=== PATIENT | male | born 1950 | race Caucasian/White ===

== ENCOUNTER 2017-10-12 09:43 | Day surgery (SDC) | payer OTHER ==
--- NOTE | 2017-10-10 09:52 | EKG ---
Test Date: 2017-10-10 Test Time: 09:26:13 Circuit Tester: DARLIN MEASUREMENT RESULTS: Intervals: Rate: 79 OH: 216 QRSD: 96 QT: 376 QTc: 431 [place]: P: 68 OH: 216 QRS: -14 T: 255 INTERPRETIVE STATEMENTS: Sinus rhythm with 1st degree AV block T wave abnormality, consider inferolateral ischemia Abnormal ECG No previous ECG available for comparison Electronically Signed On 10-10-17 09:51:45 CDT by Torin Doty
[2017-10-12] MEDS ORDERED: Ringers Lactate 1,000 ML IV ONE (09:52)
[2017-10-12] MEDS ORDERED: FENTANYL CITR 250 MCG/5 ML ONE (12:37)
[2017-10-12] MEDS ORDERED: LIDOCAINE 2% MPF 5 ML VIAL ONE (12:37)
[2017-10-12] MEDS ORDERED: ROCURONIUM 50 MG/5 ML VIAL IV ONE (12:37)
[2017-10-12] MEDS ORDERED: PROPOFOL 200 MG/20 ML VIAL IV ONE (12:37)
[2017-10-12] MEDS ORDERED: MIDAZOLAM HCL 2 MG/2 ML INJ ONE (12:37)
[2017-10-12] MEDS ORDERED: GLYCOPYRROLATE 0.2 MG/ML SYR ONE (14:12)
[2017-10-12] MEDS ORDERED: NEOSTIGMINE 1 MG/ML -5 ML SYRINGE ONE (14:13)
[2017-10-12] MEDS ORDERED: DEXAMETHASONE 10 MG/ML VIAL ONE (14:31)
[2017-10-12] MEDS: MEPERIDINE HCL 50 MG/ML AMP ONE ×2 (15:07→15:13)
[2017-10-12] MEDS ORDERED: TRAMADOL HCL 50 MG TAB PO ONE (16:00)
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
== END 2017-10-12 16:25 | disposition home or self-care (01) ==
LOC: OR 09:43
PROVIDERS: ATTEND Otolaryngology
PROC: 0CBS8ZX Excision of Larynx, Via Natural or Artificial Opening Endoscopic, Diagnostic (ICD-10-PCS; principal; 2017-10-12 11:30)
DX: C32.9 Malignant neoplasm of larynx, unspecified (principal); K21.9 Gastro-esophageal reflux disease without esophagitis; I10 Essential (primary) hypertension; G47.33 Obstructive sleep apnea (adult) (pediatric); I25.10 Atherosclerotic heart disease of native coronary artery without angina pectoris; Z95.0 Presence of cardiac pacemaker; Z80.9 Family history of malignant neoplasm, unspecified; Z82.49 Family history of ischemic heart disease and other diseases of the circulatory system; Z82.3 Family history of stroke
CPT/HCPCS: 31536; 88305; 93005; J1100; J2175; J2250; J2710

== ENCOUNTER 2018-11-04 16:27 | Inpatient (IN) | payer OTHER ==
--- OUTSIDE RECORDS SUMMARY | 2018-11-04 16:56 | XMS REPORT | Continuity of Care Document ---
:1950 Author Organization Interface Problems Problem Status Onset Classification Date Comments Source Date Reported Acute respiratory 01/27/20 08/06/2018 [facility] failure with 18 hypoxia SOB Active 01/09/20 [facility] 18 Shane Shortness of 08/06/2018 [facility] breath Pneumonia due to 08/06/2018 [facility] Methicillin susceptible Staphylococcus aureus Hypo-osmolality 08/06/2018 [facility] and hyponatremia Hyperosmolality 08/06/2018 [facility] and hypernatremia Edema of larynx 08/06/2018 [facility] Obstructive sleep 08/06/2018 [facility] apnea (pediatric) Anxiety disorder, 08/06/2018 [facility] unspecified Essential 08/06/2018 [facility] hypertension Hyperlipidemia, 08/06/2018 [facility] unspecified Dehydration 08/06/2018 [facility] Bradycardia, 08/06/2018 [facility] unspecified Hypomagnesemia 08/06/2018 [facility] Dysphagia, 08/06/2018 [facility] oropharyngeal phase Obesity, 08/06/2018 [facility] unspecified Other specified 08/06/2018 [facility] disorders of the skin and subcutaneous tissue related to radiation Anemia, 08/06/2018 [facility] unspecified Elevated white 08/06/2018 [facility] blood cell count, unspecified 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 Diarrhea, 08/06/2018 [facility] unspecified Gastritis, 08/06/2018 [facility] unspecified, without bleeding Gastric ulcer, 08/06/2018 [facility] unspecified as acute or chronic, without hemorrhage or perforation Personal history 08/06/2018 [facility] of nicotine dependence Personal history 08/06/2018 [facility] of irradiation Personal history 08/06/2018 [facility] of antineoplastic chemotherapy Body mass index 08/06/2018 [facility] 39.0-39.9, adult Presence of 08/06/2018 [facility] cardiac pacemaker SHORTNESS OF Active [facility] BREATH [place] Medications Medication Details Route Status Patient Ordering Order Source Instructions Provider Date lisinopril 20 mg 20 mg=1 tab, Active oral tablet PO, Q24H, # 30 2018 [facility] tab, 0 Refill(s) Hydralazine 25 mg=1 tab, Active Hydrochloride 25 MG PO, BID, # 60 2018 [facility] Oral Tablet tab, 0 Refill(s) carvedilol 6.25 mg 6.25 mg=1 tab, Active oral tablet PO, Q12H, # 60 2018 [facility] tab, 0 Refill(s) amLODIPine 10 mg 10 mg=1 tab, Active oral tablet PO, Daily, # 2018 [facility] 30 tab, 0 Refill(s) Magnesium Oxide 800 mg, 2 tab, Inactive Route: PO, 2017 [facility] Drug form: TAB, ONCE, Dosing Weight 118.2, kg, Start date: 01/17/18 17:59:00 CDT, Stop date: 01/17/18 17:59:00 CDTNotes: (Same as: Mag-Ox 400) Magnesium oxide [id number] elemental magnesium Dose=____mg magnesium oxide (___mg elemental magnesium) Magnesium Sulfate 2 gm, 50 mL, Inactive Route: IVPB, 2017 [facility] Drug form: INJ, Q2H, Dosing Weight 118.2, kg, Total dose=4 gm, Start date: 01/17/18 16:00:00 CDT, Duration: 2 doses or times, Stop date: 01/17/18 18:00:00 CDTNotes: WASTE: F/P - Sink; E - Municipal Trash Bin Maalox Advanced 20 mL, Route: Inactive Regular Strength PO, Drug Form: 2017 [facility] SUSP SUSP, Dosing Weight 118.2, kg, ONCE, NOW, Start date: 01/17/18 1:34:00 CDT, Stop date: 01/17/18 1:34:00 CDTNotes: (aluminum hydroxide-magn esium hyd-simethicon e [phone]/5 ml 30 ml ud FADY) Prednisone 40 mg, 2 tab, No Longer Route: PEG, Active 2017 [facility] Drug form: TAB, Daily, Dosing Weight 118.2, kg, Start date: 01/16/18 9:00:00 CDT, Duration: 30 day, Stop date: 02/14/18 9:00:00 CDTNotes: Take with food. benazepril 20 mg, Route: No Longer PO, Drug form: Active 2018 [facility] TAB, Daily, Dosing Weight 118.2, kg, Start date: 01/15/18 9:00:00 CDT, Duration: 30 day, Stop date: 02/13/18 9:00:00 CDT Amlodipine 10 mg, 2 tab, No Longer Route: PO, Active 2018 [facility] Drug form: TAB, Daily, Dosing Weight 118.2, kg, Start date: 01/15/18 9:00:00 CDT, Duration: 30 day, Stop date: 02/13/18 9:00:00 CDTNotes: (Same as: Norvasc) Coreg 6.25 mg, 2 No Longer tab, Route: Active 2017 [facility] PO, Drug form: TAB, Q12H, Dosing Weight 118.2, kg, Start date: 01/14/18 21:00:00 CDT, Duration: 30 day, Stop date: 02/13/18 9:00:00 CDTNotes: Give with food. (Same As: Coreg) Hydralazine 25 mg, 1 tab, No Longer Hydrochloride 25 MG Route: PO, Active 2017 [facility] Oral Tablet Drug form: TAB, BID, Dosing Weight 118.2, kg, Start date: 01/14/18 17:00:00 CDT, Duration: 30 day, Stop date: 02/13/18 9:00:00 CDTNotes: (Same as: Apresoline) May interfere w/enteral feedings Take With Food. lisinopril 20 mg, 1 tab, No Longer Route: PO, Active 2017 [facility] Drug form: TAB, Q24H, Start date: 01/14/18 16:00:00 CDT, Duration: 30 day, Stop date: 02/12/18 16:00:00 CDTNotes: (Same as: Prinivil, Zestril) Levofloxacin 750 mg, 3 tab, No Longer Route: PO, Active 2018 [facility] Drug form: TAB, [id number], Dosing Weight 118.2, kg, Start date: 01/14/18 9:00:00 CDT, Duration: 3 day, Stop date: 01/16/18 9:00:00 CDT, ABX Indication: PneumoniaNotes : Do not give w/antacids, dairy pdt & minerals Take 1 hr before or 2 hr after dairy pdt (Same as:Levaquin) Magnesium Sulfate 1 gm, 100 mL, Inactive Route: IVPB, 2017 [facility] Drug form: INJ, ONCE, Dosing Weight 118.2, kg, Start date: 01/13/18 6:14:00 CDT, Stop date: 01/13/18 6:14:00 CDTNotes: WASTE: F/P - Sink; E - Municipal Trash Bin Famotidine 20 MG 20 mg, 1 tab, No Longer Oral Tablet Route: PO, Active 2017 [facility] Drug form: TAB, Q12H, Dosing Weight 118.2, kg, Start date: 01/11/18 21:00:00 CDT, Duration: 30 day, Stop date: 02/10/18 9:00:00 CDTNotes: (Same as: Pepcid) Melatonin 3 MG 3 mg, 1 tab, No Longer Extended Release Route: PO, Active 2017 [facility] Tablet Drug Form: TAB, Dosing Weight 118.2, kg, ONCE, NOW, Start date: 01/11/18 20:30:00 CDT, Stop date: 01/11/18 20:30:00 CDTNotes: (Same as: Melatonin) Aluminum Hydroxide 5 mL, Route: No Longer 40 MG/ML / S&SPIT, Drug Active 2017 [facility] Magnesium Hydroxide Form: SUSP, 40 MG/ML / Dosing Weight Simethicone 4 MG/ML 118.2, kg, Oral Suspension TID, Start [Mi-Acid] date: 01/11/18 17:00:00 CDT, Stop date: 02/10/18 13:00:00 CDTNotes: (aluminum hydroxide-magn esium hyd- simethicone [phone]/5 ml 30 ml ud FADY) Silver Sulfadiazine 1 appl, Route: No Longer 10 MG/ML Topical TOP, BID, Drug Active 2018 [facility] Cream form: CRM, Start date: 01/11/18 17:00:00 CDT, Duration: 30 day, Stop date: 02/10/18 9:00:00 CDTNotes: (Same as: Silvaangel) WASTE: F/P - Black; E - Municipal Trash Bin Protonix 40 mg, 1 pkt, No Longer Route: PEG, Active 2017 [facility] Drug form: GRAN/REC, BID, Dosing Weight 118.2, kg, Start date: 01/11/18 17:00:00 CDT, Duration: 30 day, Stop date: 02/10/18 9:00:00 CDTNotes: Same as: Protonix Mix in 5 mL apple juice or applesauce for oral & 10mL apple juice for NG tube Aquaphor 1 appl, Route: No Longer TOP, Q12H, Active 2017 [facility] Drug form: OINT, PRN Dry Skin, Start date: 01/11/18 15:07:00 CDT, Duration: 30 day, Stop date: 02/10/18 15:06:00 CDT chlorhexidine 15 mL, Route: No Longer gluconate 1.2 MG/ML Swab Mouth, Active 2017 [facility] Mouthwash Q12H, Drug form: LIQ, Start date: 01/09/18 21:00:00 CDT, Duration: 30 day, Stop date: 02/08/18 9:00:00 CDTNotes: (Same As: Peridex) Famotidine 20 mg, Route: Inactive IVPB, Q12H, 2017 [facility] Dosing Weight 118.2, kg, Start date: 01/09/18 21:00:00 CDT, Duration: 30 day, Stop date: 02/08/18 9:00:00 CDT famotidine 20 mg, 2 mL, No Longer Route: IVP, Active 2017 [facility] Drug form: INJ, Q12H, Start date: 01/09/18 21:00:00 CDT, Duration: 30 day, Stop date: 02/08/18 9:00:00 CDTNotes: (Same as: Pepcid) Can be dilute in 5-10cc NS IVP: Slow IV push over at least 2 minutes. ocular lubricant 1 appl, Route: No Longer BOTH EYES, Active 2017 [facility] Q6H, Drug form: OINT, Start date: 01/09/18 18:00:00 CDT, Duration: 30 day, Stop date: 02/08/18 12:00:00 CDTNotes: (Same as: Lacri-Lube, Duratears Naturale, Artificial Tears, and Tears Again ) Hydralazine 10 mg, 0.5 mL, No Longer Route: IVP, Active 2017 [facility] Drug form: INJ, Q4H, Dosing Weight 118.2, kg, PRN Hypertension, Start date: 01/09/18 15:49:00 CDT, Duration: 30 day, Stop date: 02/08/18 15:48:00 CDTNotes: (Same as: Apresoline) Push over 5 minutes propofol (ANES) Route: IV, Inactive Drug form: 2017 [place] INJ, ONCE, Stop date: 01/09/18 15:45:00 CDT metoprolol (ANES) Route: IV, Inactive Drug form: 2017 [facility] INJ, ONCE, Stop date: 01/09/18 15:27:00 CDT hydrALAZINE (ANES) Route: IV, Inactive Drug form: 2017 [facility] INJ, ONCE, Stop date: 01/09/18 15:27:00 CDT fentaNYL (ANES) Route: IV, Inactive Drug form: 2017 [facility] INJ, ONCE, Stop date: 01/09/18 15:15:00 CDT midazolam (ANES) Route: IV, Inactive Drug form: 2018 [facility] SOLN, ONCE, Stop date: 01/09/18 15:09:00 CDT chlorhexidine 15 mL, Route: No Longer gluconate 1.2 MG/ML Swab Mouth, Active 2017 [facility] Mouthwash PRN, Drug form: LIQ, PRN Other -See Comment, Start date: 01/09/18 15:07:00 CDT, Duration: 30 day, Stop date: 02/08/18 15:06:00 CDTNotes: (Same As: Peridex) Lactated Ringers Route: IV, Inactive Injection IV (ANES) Total Volume: 2017 [facility] 1000 mL 1,000, Start date: 01/09/18 14:30:00 CDT, Stop date: 01/09/18 15:30:00 CDT Labetalol 10 mg, 2 mL, No Longer Route: IVP, Active 2017 [facility] Drug form: INJ, Q6H, Dosing Weight 118.2, kg, PRN Hypertension, Start date: 01/09/18 11:01:00 CDT, Duration: 30 day, Stop date: 02/08/18 11:00:00 CDT Hydralazine 10 mg, Route: Inactive IVP, Q6H, 2017 [facility] Dosing Weight 118.2, kg, PRN Hypertension, Start date: 01/09/18 10:51:00 CDT, Duration: 30 day, Stop date: 02/08/18 10:50:00 CDT Naproxen sodium 220 220 mg=1 tab, No Longer MG Oral Tablet PO, Q8H, PRN Active 2017 [facility] [Aleve] Headache, # 30 tab, 0 Refill(s) Hydralazine 25 mg=1 tab, No Longer Hydrochloride 25 MG PO, TID, # 90 Active 2017 [facility] Oral Tablet tab, 3 Refill(s) tramadol 50 mg=1 tab, No Longer hydrochloride 50 MG PO, BID, # 30 Active 2018 [facility] Oral Tablet tab, 0 Refill(s) carvedilol 6.25 mg 6.25 mg=1 tab, No Longer oral tablet PO, BID, # 180 Active 2017 [facility] tab, 3 Refill(s) Fenofibrate 54 MG 54 mg=1 tab, No Longer Oral Tablet PO, BID, # 30 Active 2017 [facility] tab, 0 Refill(s) diclofenac sodium 75 mg=1 tab, No Longer 75 mg oral enteric PO, BID, PRN Active 2018 [facility] coated, Pain, # 60 delayed-release tab, 0 tablet Refill(s) 60 ACTUAT 50 microgram=1 No Longer Fluticasone ea, Active 2017 [facility] propionate 0.05 INHALATION, MG/ACTUAT Dry BID, # 60 ea, Powder Inhaler 0 Refill(s) Aspirin 81 MG 81 mg=1 tab, No Longer Chewable Tablet PO, Daily, Active 2018 [facility] tab, 0 Refill(s) Tylenol PO, 0 No Longer Refill(s) Active 2018 [facility] Amlodipine 10 MG / 1 cap, PO, No Longer Benazepril Daily, # 30 Active 2018 [facility] hydrochloride 20 MG cap, 0 Oral Capsule Refill(s) Hydrochlorothiazide 1 tab, 0 No Longer 25 MG / valsartan Refill(s) Active 2018 [facility] 320 MG Oral Tablet atorvastatin 40 mg 80 mg=2 tab, No Longer oral tablet PO, Bedtime, # Active 2018 [facility] 30 tab, 0 Refill(s) methylPREDNISolone 40 mg, 1 mL, No Longer SODium SUCCinate Route: IVP, Active 2017 [facility] Drug form: INJ, Q12H, Dosing Weight 118.2, kg, Start date: 01/09/18 9:00:00 CDT, Duration: 30 day, Stop date: 02/07/18 21:00:00 CDTNotes: (Same as:Solu-MEDROL , A-Methapred) Mupirocin 20 MG/ML 1 appl, Route: No Longer Topical Cream TOP, TID, Drug Active 2017 [facility] form: OINT, Start date: 01/09/18 9:00:00 CDT, Duration: 7 day, Stop date: 01/15/18 17:00:00 CDT Budesonide 0.5 mg, 2 mL, No Longer Route: NEB, Active 2017 [facility] Drug form: SUSP, RBID, Dosing Weight 118.2, kg, Start date: 01/09/18 8:07:00 CDT, Duration: 30 day, Stop date: 02/08/18 8:00:00 CDTNotes: (Same As: Pulmicort) Unasyn 1.5 gm, 1 ea, No Longer Route: IVPB, Active 2017 [facility] [id number], Dosing Weight 118.2, kg, Start date: 01/09/18 8:00:00 CDT, Duration: 7 day, Stop date: 01/16/18 2:00:00 CDTNotes: Dosing based on Ampicillin component (Same as: Unasyn) Fentanyl 25 microgram, No Longer 0.5 mL, Route: Active 2017 [facility] IV, Drug form: INJ, Q4H, Dosing Weight 118.2, kg, PRN Pain Score 7-10, Start date: 01/09/18 7:57:00 CDT, Duration: 30 day, Stop date: 02/08/18 7:56:00 CDTNotes: (Same as: Sublimaze) Preservative free. sodium phosphate 15 mmol, 5 mL, No Longer Route: IVPB, Active 2017 [facility] PRN, Dosing Weight 118.2, kg, PRN Abnormal Lab Result, Start date: 01/09/18 7:56:00 CDT, Duration: 30 day, Stop date: 02/08/18 7:55:00 CDT, FOR ICU USE ONLY Potassium Chloride 20 mEq, 15 mL, No Longer Route: NJ, Active 2017 [facility] Drug form: LIQ, PRN, Dosing Weight 118.2, kg, PRN Abnormal Lab Result, Start date: 01/09/18 7:56:00 CDT, Duration: 30 day, Stop date: 02/08/18 7:55:00 CDT, FOR ICU USE ONLYNotes: (Same as: Potassium Chloride) Calcium Carbonate 500 mg, 1 tab, No Longer 500 MG Chewable Route: PO, Active 2017 [facility] Tablet Drug form: CHEWTAB, PRN, Dosing Weight 118.2, kg, PRN Abnormal Lab Result, FOR ICU USE ONLY, Start date: 01/09/18 7:56:00 CDT, Duration: 30 day, Stop date: 02/08/18 7:55:00 CDTNotes: (Same As: Tums) Calcium Carbonate 500 bb=818 mg elemental calcium Dose= mg calcium carbonate ( mg elemental calcium) Magnesium Oxide 800 mg, 2 tab, No Longer Route: PO, Active 2017 [facility] Drug form: TAB, PRN, Dosing Weight 118.2, kg, PRN Abnormal Lab Result, FOR ICU USE ONLY, Start date: 01/09/18 7:56:00 CDT, Duration: 30 day, Stop date: 02/08/18 7:55:00 CDTNotes: (Same as: Mag-Ox 400) Magnesium oxide [id number] elemental magnesium Dose=____mg magnesium oxide (___mg elemental magnesium) Calcium Gluconate 1 gm, 10 mL, No Longer Route: IVPB, Active 2017 [facility] PRN, Dosing Weight 118.2, kg, PRN Abnormal Lab Result, Start date: 01/09/18 7:56:00 CDT, Duration: 30 day, Stop date: 02/08/18 7:55:00 CDT, FOR ICU USE ONLYNotes: WASTE: F/P - Sink; E - Municipal Trash Bin potassium 2 pkt, Route: No Longer phosphate-sodium PO, Drug Form: Active 2017 SensorTran phosphate 250 PDR/REC, mg-280 mg-160 mg Dosing Weight oral powder for 118.2, kg, reconstitution PRN, PRN Abnormal Lab Result, FOR ICU USE ONLY, Start date: 01/09/18 7:56:00 CDT, Duration: 30 day, Stop date: 02/08/18 7:55:00 CDTNotes: (Same as: Phos-NaK) Each 1.5 gm pkt has 250mg phosphorous. Mix w/2.5oz water and stir. Magnesium Sulfate 2 gm, 4 mL, No Longer Route: IVPB, Active 2017 [facility] PRN, Dosing Weight 118.2, kg, PRN Abnormal Lab Result, Start date: 01/09/18 7:56:00 CDT, Stop date: 02/08/18 7:55:00 CDT, FOR ICU USE ONLYNotes: (Same as: MgSO4) WASTE: F/P - Sink; E - Municipal Trash Bin MEDICATION WASTE Product Size: 1000 mg Product Wasted: ___ mg potassium phosphate 30 mmol, 10 No Longer mL, Route: Active 2018 [facility] IVPB, PRN, Dosing Weight 118.2, kg, PRN Abnormal Lab Result, Start date: 01/09/18 7:56:00 CDT, Duration: 30 day, Stop date: 02/08/18 7:55:00 CDT, FOR ICU USE ONLYNotes: (Same as: K Phosphate.) 1 mMol phoshate has 1.47 mEq potassium Infuse over 4 hours Glucagon 1 mg, Route: No Longer IM, Drug form: Active 2018 [facility] PDR/INJ, PRN, Dosing Weight 118.2, kg, PRN Blood Glucose Results, Start date: 01/09/18 7:54:00 CDT, Duration: 30 day, Stop date: 02/08/18 7:53:00 CDT Dextrose 50% 12.5 gm, 25 No Longer Syringe mL, Route: Active 2018 [facility] IVP, Drug Form: INJ, Dosing Weight 118.2, kg, PRN, PRN Blood Glucose Results, Start date: 01/09/18 7:54:00 CDT, Duration: 30 day, Stop date: 02/08/18 7:53:00 CDT Insulin Lispro 10 unit, 0.1 No Longer mL, Route: Active 2018 [facility] SUB-Q, Drug form: SOLN, Sliding Scale, Dosing Weight 118.2, kg, PRN Blood Glucose Results, Start date: 01/09/18 7:54:00 CDT, Duration: 30 day, Stop date: 02/08/18 7:53:00 CDTNotes: (Same as: Humalog ) Roll in palms of hands gently; Do not shake `vigorously. "Single Patient Use Only " WASTE: F/P - Black; E - Municipal Trash Bin Stable for 28 days at room temperature. Expires in days from Date Albuterol 0.83 2.49 mg, 3 mL, No Longer MG/ML Inhalant Route: NEB, Active 2018 [facility] Solution Drug form: SOLN, PRN, Dosing Weight 118.2, kg, PRN Respiratory Pathway, Start date: 01/09/18 7:53:00 CDT, Duration: 30 day, Stop date: 02/08/18 7:52:00 CDTNotes: SEE RT DOCUMENTATION (Same as: Proventil) D5W 1,000 mL 1,000 mL, No Longer Rate: 50 Active 2018 [facility] ml/hr, Infuse over: 20 hr, Route: IV, Dosing Weight 118.2 kg, Total Volume: 1,000, Start date: 01/09/18 1:44:00 CDT, Stop date: 02/08/18 1:44:00 CDT, 2.41, m2 Lovenox 40 mg, 0.4 mL, No Longer Route: SUB-Q, Active 2017 [facility] Drug form: INJ, [id number], Dosing Weight 118.2, kg, Start date: 01/09/18 1:00:00 CDT, Duration: 30 day, Stop date: 02/07/18 1:00:00 CDTNotes: (Same as: Lovenox) Dextrose 5% with 1,000 mL, Inactive 0.45% NaCl IV 1,000 Rate: 75 2018 [facility] mL ml/hr, Infuse over: 13.3 hr, Route: IV, Dosing Weight 118.2 kg, Total Volume: 1,000, Start date: 01/09/18 0:48:00 CDT, Duration: 30 day, Stop date: 02/08/18 0:47:00 CDT, 2.41, m2 Acetaminophen 650 mg, 2 tab, No Longer Route: PO, Active 2017 [facility] Drug form: TAB, Q4H, Dosing Weight 118.2, kg, PRN Pain 1-3/Temp > 100.4 F, Start date: 01/09/18 0:40:00 CDT, Duration: 30 day, Stop date: 02/08/18 0:39:00 CDTNotes: Do not exceed 4 gm/day. (Same as: Tylenol) Ondansetron 4 mg, 2 mL, No Longer Route: IVP, Active 2017 [facility] Drug form: INJ, Q6H, Dosing Weight 118.2, kg, PRN Nausea & Vomiting, Start date: 01/09/18 0:40:00 CDT, Duration: 30 day, Stop date: 02/08/18 0:39:00 CDTNotes: (Same as: Zofran) MEDICATION WASTE Product Size: 4 mg Product Wasted: ___ mg Dextrose 5% with 1,000 mL, Inactive 0.45% NaCl IV 1,000 Rate: 125 2017 [facility] mL ml/hr, Infuse over: 8 hr, Route: IV, Dosing Weight 118.2 kg, Total Volume: 1,000, Start date: 01/09/18 0:40:00 CDT, Duration: 30 day, Stop date: 02/08/18 0:39:00 CDT, 2.41, m2 Saline Flush 0.9% 10 ml, Route: No Longer IVP, Drug Active 2017 [facility] Form: INJ, Dosing Weight 118.2, kg, PRN, PRN Line Flush, Start date: 01/09/18 0:40:00 CDT, Duration: 30 day, Stop date: 02/08/18 0:39:00 CDTNotes: (Same as: BD Posiflush) Allergies, Adverse Reactions, Alerts Substance Category Reaction Severity Reaction Status Date Comments Source type Reported MS Contin Assertion Drug Active allergy [facility] Immunizations Immunization Date Given Site Status Last Updated Comments Source Results Order Name Results Value Reference Date Interpretation Comments Source Range Esophagus Esophagus BA Patient Name: MARY JIMENEZ 01/17 - [facility] swallow swallow /2017 - [place] function function : 1950; Age: 67 years y/o Male video DX video DX MR: [id number] Read by: West Rich MD Dictated Date/time: 01/17/18 11:05 Electronically Signed by: West Rich MD 01/17/18 11:07 FINAL REPORT Study: Esophagus BA swallow function video DX 01/17/2018 9:43 AM CDT Ordering Physician: Doc Kendrick MD Clinical Indication: - Oropharyngeal dysphasia s/p trach; Comparison: None Modified barium swallow performed in conjunction with speech pathologist. Total fluoroscopy time 1.5 minutes. Several episodes of deep penetration with cough reflex noted within liquids by cup. [place], pudding and solids were well-tolerated, however. Please see speech pathologist report for more detailed data, recommendations for follow-up. SL: [id number] CHEM PANEL Magnesium 1.5 mg/dL 1.8 - 2.4 01/17 Lvl [facility] CHEM PANEL BUN 18 mg/dL 7 - 01/17 [facility] CHEM PANEL Creatinine 0.52 mg/dL 0.50 - 01/17 MH Lvl 1.40 [facility] CHEM PANEL Glucose Lvl 83 mg/dL 70 - 99 01/17 [facility] CHEM PANEL Chloride Lvl 108 meq/L 95 - 109 01/17 [facility] CHEM PANEL Sodium Lvl 143 meq/L 135 - 145 01/17 [facility] CHEM PANEL Potassium 3.8 meq/L 3.5 - 5.1 01/17 MH Lv [facility] CHEM PANEL eGFR 112 01/17 Result Comment: The eGFR is calculated using the CKD-EPI formula. In most young, healthy individuals the eGFR will be >90 mL/ min/1.73m2. The eGFR declines with age. An eGFR of 60-89 may be normal in mL/min/1. some populations, particularly the elderly, for whom the CKD-EPI formula has not been extensively validated. Use of the eGFR is not recommended in the following populations: [place] [id number] Individuals with unstable creatinine concentrations, including patients and those with serious co-morbid conditions. Patients with extremes in muscle mass or diet. The data above are obtained from the National Kidney Disease Education Program (NKDEP) which additionally recommends that when the eGFR is used in patients with extremes of body mass index for purposes of drug dosing, the eGFR should be multiplied by the estimated BMI. CHEM PANEL AGAP 12.8 meq/L 10.0 - 01/17 [facility] 20. [facility] CHEM PANEL CO2 26 meq/L 24 - 32 01/17 [facility] CHEM PANEL Calcium Lvl 7.7 mg/dL 8.5 - 10.5 01/17 [facility] HEMATOLOGY WBC 13.7 K/CMM 3.7 - 10.4 01/17 [facility] HEMATOLOGY MCV 92.0 fL 80.0 - 01/17 MH 94.0 [facility] HEMATOLOGY Hgb 10.0 g/dL 14.0 - 01/17 MH 18.0 [facility] HEMATOLOGY Hct 29.2 % 42.0 - 01/17 MH 54.0 [facility] HEMATOLOGY RBC 3.17 M/CMM 4.70 - 01/17 MH 6.10 [facility] HEMATOLOGY MPV 8.6 fL 7.4 - 10.4 01/17 [facility] HEMATOLOGY Platelet 294 K/CMM 133 - 450 01/17 [facility] HEMATOLOGY MCHC 34.4 g/dL 32.0 - 01/17 MH 36.0 [facility] HEMATOLOGY MCH 31.7 pg 27.0 - 01/17 31.0 [facility] HEMATOLOGY RDW 14.5 % 11.5 - 01/17 14. [facility] CHEM PANEL eGFR 108 01/15 Result Comment: The eGFR is calculated using the CKD-EPI formula. In most young, healthy individuals the eGFR will be >90 mL/ min/1.73m2. The eGFR declines with age. An eGFR of 60-89 may be normal in mL/min/1.7 some populations, particularly the elderly, for whom the CKD-EPI formula has not been extensively validated. Use of the eGFR is not recommended in the following populations: [place] [id number] Individuals with unstable creatinine concentrations, including patients and those with serious co-morbid conditions. Patients with extremes in muscle mass or diet. The data above are obtained from the National Kidney Disease Education Program (NKDEP) which additionally recommends that when the eGFR is used in patients with extremes of body mass index for purposes of drug dosing, the eGFR should be multiplied by the estimated BMI. CHEM PANEL Sodium Lvl 143 meq/L 135 - 145 01/15 [facility] CHEM PANEL Potassium 4.5 meq/L 3.5 - 5.1 01/15 Lv [facility] CHEM PANEL Chloride Lvl 109 meq/L 95 - 109 01/15 [facility] CHEM PANEL CO2 28 meq/L 24 - 32 01/15 [facility] CHEM PANEL Calcium Lvl 7.7 mg/dL 8.5 - 10.5 01/15 [facility] CHEM PANEL Creatinine 0.57 mg/dL 0.50 - 01/15 [facility] Lvl 1.40 [facility] CHEM PANEL Glucose Lvl 115 mg/dL 70 - 99 01/15 [facility] CHEM PANEL BUN 22 mg/dL 7 - 22 01/15 [facility] CHEM PANEL AGAP 10.5 meq/L 10.0 - 01/15 MH 20.0 [facility] CHEM PANEL Magnesium 1.7 mg/dL 1.8 - 2.4 01/15 Lv [facility] HEMATOLOGY WBC 14.6 K/CMM 3.7 - 10.4 01/15 [facility] HEMATOLOGY RBC 3.17 M/CMM 4.70 - 01/15 MH 6.10 [facility] HEMATOLOGY Hgb 9.9 g/dL 14.0 - 01/15 MH 18.0 [facility] HEMATOLOGY MPV 8.7 fL 7.4 - 10.4 01/15 [facility] HEMATOLOGY Platelet 297 K/CMM 133 - 450 01/15 [facility] HEMATOLOGY MCV 92.4 fL 80.0 - 01/15 MH 94.0 [facility] HEMATOLOGY MCH 31.3 pg 27.0 - 01/15 MH 31.0 [facility] HEMATOLOGY RDW 14.1 % 11.5 - 01/15 MH 14. [facility] HEMATOLOGY Hct 29.3 % 42.0 - 01/15 MH 54.0 [facility] HEMATOLOGY MCHC 33.8 g/dL 32.0 - 01/15 MH 36.0 [facility] HEMATOLOGY Lymphocytes 0.1 K/CMM 1.0 - 5.5 01/15 MH # /2017 [facility] HEMATOLOGY Monocytes # 0.6 K/CMM 0.0 - 0.8 01/15 [facility] HEMATOLOGY Monocytes 4.4 % 2.0 - 12.0 01/15 [facility] HEMATOLOGY Neutrophils 13.8 K/CMM 1.5 - 8.1 01/15 MH # [facility] HEMATOLOGY Basophils 0.1 % 0.0 - 1.0 01/15 [facility] HEMATOLOGY Lymphocytes 1.0 % 20.0 - 01/15 MH 40.0 [facility] HEMATOLOGY Segs 94.5 % 45.0 - 01/15 MH 75.0 [facility] CHEM PANEL Phosphorus 2.1 mg/dL 2.5 - 4.5 01/14 [facility] CHEM PANEL Magnesium 2.3 mg/dL 1.8 - 2.4 01/14 MH Lvl /2017 [facility] ELECTROLYTE AGAP 9.3 meq/L 10.0 - 01/14 MH S 20.0 [facility] ELECTROLYTE eGFR 106 01/14 Result Comment: The eGFR is calculated using the CKD-EPI formula. In most young, healthy individuals the eGFR will be > 90 mL/min/1.73m2. The eGFR declines with age. An eGFR of 60-89 may be normal in S mL/min/1. some populations, particularly the elderly, for whom the CKD-EPI formula has not been extensively validated. Use of the eGFR is not recommended in the following populations: [address] Individuals with unstable creatinine concentrations, including patients and those with serious co-morbid conditions. Patients with extremes in muscle mass or diet. The data above are obtained from the National Kidney Disease Education Program (NKDEP) which additionally recommends that when the eGFR is used in patients with extremes of body mass index for purposes of drug dosing, the eGFR should be multiplied by the estimated BMI. ELECTROLYTE Calcium Lvl 7.5 mg/dL 8.5 - 10.5 01/14 S [facility] ELECTROLYTE CO2 29 meq/L 24 - 32 01/14 [facility] ELECTROLYTE Creatinine 0.59 mg/dL 0.50 - 01/14 S Lvl 1.40 [facility] ELECTROLYTE Sodium Lvl 143 meq/L 135 - 145 01/14 [facility] ELECTROLYTE Chloride Lvl 109 meq/L 95 - 109 01/14 [facility] ELECTROLYTE Glucose Lvl 148 mg/dL 70 - 99 01/14 [facility] ELECTROLYTE Potassium 4.3 meq/L 3.5 - 5.1 01/14 S Lvl /2017 [facility] ELECTROLYTE BUN 25 mg/dL 7 - 22 01/14 [facility] HEMATOLOGY RDW 14.4 % 11.5 - 01/14 MH 14. [facility] HEMATOLOGY Platelet 313 K/CMM 133 - 450 01/14 [facility] HEMATOLOGY MPV 7.9 fL 7.4 - 10.4 01/14 [facility] HEMATOLOGY WBC 13.8 K/CMM 3.7 - 10.4 01/14 [facility] HEMATOLOGY RBC 3.12 M/CMM 4.70 - 01/14 MH 6.10 [facility] HEMATOLOGY Hct 29.2 % 42.0 - 01/14 MH 54.0 [facility] HEMATOLOGY Hgb 9.7 g/dL 14.0 - 01/14 MH 18.0 [facility] HEMATOLOGY MCHC 33.3 g/dL 32.0 - 01/14 MH 36.0 [facility] HEMATOLOGY MCV 93.6 fL 80.0 - 01/14 MH 94.0 [facility] HEMATOLOGY MCH 31.2 pg 27.0 - 01/14 MH 31.0 /2018 [facility] HEMATOLOGY Lymphocytes 0.7 % 20.0 - 01/14 MH 40.0 /2017 [facility] HEMATOLOGY Monocytes 3.9 % 2.0 - 12.0 01/14 MH /2017 [facility] HEMATOLOGY Neutrophils 13.1 K/CMM 1.5 - 8.1 01/14 MH # /2018 [facility] HEMATOLOGY Eosinophils 0.1 % 0.0 - 4.0 01/14 MH /2017 [facility] HEMATOLOGY Lymphocytes 0.1 K/CMM 1.0 - 5.5 / MH # /2018 [facility] HEMATOLOGY Monocytes # 0.5 K/CMM 0.0 - 0.8 01/14 /2017 [facility] HEMATOLOGY Segs 95.3 % 45.0 - 01/14 MH 75.0 /2017 [facility] Chest 1view Chest 1view Clinical Indication: - S/p tracheostomy, non mrsa pneumonia. 01/14 - [facility] [place] Comparison: None Read by: Sandeep Tee MD Dictated Date/time: 01/14/18 09:04 FINDINGS: Electronically Signed by: Sandeep Tee MD 01/14/18 09:05 FINAL REPORT Frontal chest radiograph was obtained. The lungs are slightly underinflated. Patchy opacities in the lung bases may be due to atelectasis and/ or consolidation. Tiny bilateral pleural effusions are noted . Tracheostomy tube is seen. A left subclavian dual-lead pacemaker is noted. Cardiac silhouette is borderline enlarged. The aorta is atherosclerotic and tortuous. The bony structures are unremarkable. IMPRESSION: Underinflated lungs with patchy opacities in the lung bases. Tracheostomy tube appears in good position. SL: [id number] CHEM PANEL Phosphorus 2.5 mg/dL 2.5 - 4.5 01/13 [facility] CHEM PANEL ALT 77 unit/L 0 - 65 01/13 [facility] CHEM PANEL Bili Total 0.5 mg/dL 0.2 - 1.3 01/13 [facility] CHEM PANEL AST 42 unit/L 0 - 37 01/13 [facility] CHEM PANEL Alk Phos 46 unit/L 39 - 136 01/13 [facility] CHEM PANEL Total 5.7 g/dL 6.4 - 8.4 01/13 [facility] CHEM PANEL Albumin Lvl 2.2 g/dL 3.5 - 5.0 01/13 [facility] CHEM PANEL B/C Ratio 39 6 - 25 01/13 [facility] CHEM PANEL A/G Ratio 0.6 0.7 - 1.6 01/13 [facility] CHEM PANEL Globulin 3.5 g/dL 2.7 - 4.2 07 [facility] HEMATOLOGY Lymphocytes 0.1 K/CMM 1.0 - 5.5 07 MH # /2017 [facility] HEMATOLOGY Monocytes # 0.3 K/CMM 0.0 - 0.8 01/13 [facility] HEMATOLOGY Neutrophils 12.8 K/CMM 1.5 - 8.1 01/13 MH # [facility] HEMATOLOGY Basophils 0.2 % 0.0 - 1.0 01/13 [facility] HEMATOLOGY Monocytes 2.2 % 2.0 - 12.0 01/13 [facility] HEMATOLOGY Segs 96.6 % 45.0 - 01/13 MH 75.0 [facility] HEMATOLOGY Lymphocytes 1.0 % 20.0 - 01/13 MH 40.0 [facility] PARATHYROID Ca Ion WB 1.11 1.05 - 01/13 MH PROFILE mMol/L . [facility] PARATHYROID Ca Norm WB 1.12 1.05 - 01/13 MH PROFILE mMol/L 1. [facility] CHEM PANEL Globulin 3.6 g/dL 2.7 - 4.2 01/12 [facility] CHEM PANEL A/G Ratio 0.6 0.7 - 1.6 01/12 [facility] CHEM PANEL B/C Ratio 32 6 - 25 01/12 [facility] CHEM PANEL Bili Total 0.4 mg/dL 0.2 - 1.3 01/12 [facility] CHEM PANEL Alk Phos 47 unit/L 39 - 136 01/12 [facility] CHEM PANEL Albumin Lvl 2.1 g/dL 3.5 - 5.0 01/12 [facility] CHEM PANEL ALT 61 unit/L 0 - 65 01/12 [facility] CHEM PANEL AST 44 unit/L 0 - 37 01/12 [facility] CHEM PANEL Total 5.7 g/dL 6.4 - 8.4 07/14 MH Protein /2017 [facility] HEMATOLOGY PT 21.0 s 12.0 - 01/12 MH 14.7 /2017 [facility] HEMATOLOGY INR 1.80 0.85 - 01/12 MH 1.17 [facility] HEMATOLOGY PTT 30.4 s 22.9 - 01/12 MH 35.8 [facility] HEMATOLOGY Basophils 0.3 % 0.0 - 1.0 01/12 [facility] CHEM PANEL Phosphorus 2.9 mg/dL 2.5 - 4.5 01/11 [facility] HEMATOLOGY Eosinophils 0.1 % 0.0 - 4.0 01/11 [facility] MOLECULAR C difficile Negative Negative 01/09 DIAGNOSTIC DNA [facility] (01/09/18 8:44 AM) TETRACYCLIN Gram Stain Gram Stain 01/09 E:SUSC:PT:I Report [facility] SOLATE:ORDQ By: N:DESHAUN [facility] TETRACYCLIN Culture: Many 01/09 E:SUSC:PT:I Respiratory Staphyloco [facility] SOLATE:ORDQ w/Gram Stain ccus N:DESHAUN aureus TETRACYCLIN Staphylococc Staphyloco 01/09 E:SUSC:PT:I us aureus ccus [facility] SOLATE:ORDQ aureus N:DESHAUN Neck soft Neck soft Patient Name: MARY JIMENEZ 01/09 - [facility] w - [place] contrast CT contrast CT : 1950; Age: 67 years y/o Male MR: [id number] Read by: Namrata Torres Dictated Date/time: 01/09/18 08:44 Electronically Signed by: Namrata Torres 01/09/18 08:49 FINAL REPORT Study: Neck soft tissue w contrast CT 01/09/2018 7:53 AM CDT Ordering Physician: Mary Davis MD Clinical Indication: - stridor, h/o throat cancer s/p radiation; Comparison: None Technique: CT of the neck is performed with a multidetector CT. Coronal and sagittal reconstructions were obtained. CONTRAST: 100 cc of IV Omnipaque contrast material was used for the exam. CT Radiation Dose DLP 908 mGy-cm FINDINGS: History of stridor. History is throat carcinoma with recent radiation of the neck. The nasopharynx is unremarkable. The oropharynx is unremarkable except for a few incidentally noted tonsillar crypt calcifications. There is mild edematous mucosal thickening of the aryepiglottic folds and possibly the true vocal cords. There is mild luminal narrowing at the level of the true vocal cords. No definite masses are seen. Correlation with prior imaging is recommended. No radiopaque foreign body within the pharynx. There is no worrisome cervical adenopathy. Cardiac pacer leads are partially visualized. The submandibular and parotid glands are unremarkable. The thyroid gland is unremarkable. The lung apices are clear. There are moderate degenerative changes in the cervical spine. If there is further concern for neck masses or malignancy, PET/CT imaging or MRI of the neck should be performed for complete assessment. IMPRESSION: Mild edematous mucosal thickening of the aryepiglottic folds and true vocal cords. Mild luminal narrowing is seen at the level of the true vocal cords. No definite pharyngeal/laryngeal mass is identified. Correlation with prior imaging recommended. No worrisome adenopathy. [id number] degenerative changes in the cervical spine. SL: [id number] HEMATOLOGY Bands 5.0 % 0.0 - 11.0 01/09 [facility] HEMATOLOGY RBC Morph Normal 01/09 [facility] (01/09/18 12:55 AM) HEMATOLOGY Plt Morph Normal 01/09 [facility] (01/09/18 12:55 AM) HEMATOLOGY Atypical 0.0 % <=0.0 % 01/09 Lymph [facility] BACTERIAL - MRSA by PCR Negative 01/09 [facility] (01/09/18 12:42 AM) Vital Signs Vital Sign Value Date Comments Source Respitory Rate 17 01/18/2018 [facility] Heart Rate 85 01/17/2018 [facility] Respitory Rate 20 01/17/2018 [facility] Temperature Oral (F) 98.5 F 01/17/2018 [facility] Systolic (mm Hg) 116 01/17/2018 [facility] Diastolic (mm Hg) 68 01/17/2018 [facility] Temperature Oral (F) 98.4 F 01/17/2018 [facility] Respitory Rate 20 01/17/2018 [facility] Heart Rate 80 01/17/2018 [facility] Systolic (mm Hg) 138 01/17/2018 [facility] Diastolic (mm Hg) 75 01/17/2018 [facility] Systolic (mm Hg) 144 01/17/2018 [facility] Diastolic (mm Hg) 73 01/17/2018 [facility] Heart Rate 84 01/17/2018 [facility] Temperature Oral (F) 98.3 F 01/17/2018 [facility] Height 172.72 cm 01/09/2018 [facility] Weight 118.2 01/09/2018 [facility] Weight 118.2 01/09/2018 [facility] BMI Calculated 39.62 01/09/2018 [facility] Height 172.72 cm 01/09/2018 [facility] Encounters Location Location Encounter Encounter Reason Attending ADM DC Status Source Details Type Number For Provider Date Date Visit [facility] [id number] [place] 01/09 01/18 Shane Ryan /2017 [facility] Procedures Procedure Code Date Perfomer Comments Source
--- OUTSIDE RECORDS SUMMARY | 2018-11-04 16:57 | XMS REPORT ---
:1950 Author Organization [facility] Address [address] [place] [address] Dr. Mitchell [address] [place] [id number] Care Team Providers Name Role Phone Unavailable Unavailable Unavailable Problems This patient has no known problems. Allergies, Adverse Reactions, Alerts This patient has no known allergies or adverse reactions. Medications This patient has no known medications.
[2018-11-04] MEDS: D5.45NS W/KCL 20MEQ 1,000 ML IV SCH (17:55)
[2018-11-04] MEDS: Levofloxacin 750mg IV 750 MG/150 ML BAG IV SCH (17:57)
[2018-11-04] MEDS: DEXAMETHASONE 10 MG/ML VIAL IV SCH (17:57)
[2018-11-04 18:30] LABS: Absolute Lymphocytes (CBC) 0.6 K/uL (0.7-4.9); Absolute Monocytes 0.6 K/uL (0.1-1.3); Absolute Neutrophil 8.7 K/uL (1.8-8.0); Basophils % 0.4 % (0-1.3); Hematocrit 31.1 % (39.6-49.0); Lymphocytes % 5.5 % (15.3-44.8); MPV 6.4 fL (7.6-11.3); Monocytes % 6.1 % (3.3-12.3); RBC Red Blood Cell Count 3.39 M/uL (4.33-5.43)
[2018-11-04 19:00] LABS: Potassium 4.2 mmol/L (3.5-5.1); Thyroid Stimulating Hormone 2.15 uIU/mL (0.360-3.740)
[2018-11-05] MEDS: DEXAMETHASONE 10 MG/ML VIAL IV SCH ×3 (00:34→16:37)
--- NOTE | 2018-11-05 02:44 | HP ---
Date of Admission: 11/04/2018 Admission Diagnoses: Airway obstruction, bilateral vocal cord paresis, acute laryngitis, chronic dysphagia, history of laryngeal cancer, history of tracheostomy/decannulation. History Of Present Illness: Mr. Gillette is a 67-year-old male with a history of laryngeal carcinoma. He presented to the clinic on the afternoon of November 04 with acute stridor and a 3-day history of difficulty breathing, noisy breathing, and abnormal cough. He was seen about 3 weeks ago by his primary care doctor complaining of coughing, mucus, and allergies, and was treated with a steroid shot and later was given a prescription for antibiotic, but has not yet filled it. He denies any pain in the throat. He denies any fever. He feels that his difficulty breathing is acutely worse over the last 3 days compared to prior level of breathing and he feels significant dyspnea with mild exertion including walking down the hallway. The patient has a history of laryngeal cancer that was diagnosed in September of 2017, which presented primarily with gradual hoarseness. 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 He was a difficult intubation. 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 He was treated with radiation and chemotherapy at [facility]. Date of completion of his therapy is not known, but was likely in early December. The patient presented to an outside facility in early December with complaints of airway obstruction. He was transferred to [facility] and underwent a tracheostomy and PEG tube placement under direction of ENT, Dr. Willams of the [facility] ENT department. He was observed and had trach management by me here in [place] through summer and fall. By May, the patient was tolerating capping of his tracheostomy during the daytime and was tolerating capping with CPAP use at night. In early May, he was decannulated. At that time, the trachea and subglottic airway were clear and he had good mobility of the left vocal fold. In July of 2018, he had a tiny opening of the skin at the trach site that was about 1 mm in diameter, but seem closed on the deeper aspects with probing. He did not have any escape of air or mucus through this opening when he was seen in July. He does have a history of deep penetration without aspiration on his July swallow study. He underwent a CT and PET scan approximately 2 weeks ago without significant worrisome finding and was seen last week by Dr Alarcon. Past Medical History: Obstructive sleep apnea, chronic back pain, stress fracture. Past Surgical History: Tracheostomy in December 2017, PEG placement in December 2017, his PEG is still in place; open reduction of tibia; placement of cardiac pacemaker; direct laryngoscopy with biopsy in September 2017; previous direct laryngoscopy with biopsy of the tip of the epiglottis showing papilloma in 2013. Family History: Positive for hypertension in his mother, cancer and stroke in his father, cancer and hearing loss in his sister, heart attack and hearing loss in his brother. Social History: The patient quit tobacco in 2004. He is currently disabled due to his chronic back pain. He is . His primary care doctor is Torin Escudero in [place]. Review of Systems: Positive for shortness of breath, hearing loss, hoarse voice, nasal congestion, cough, chronic back pain, difficulty with ambulation. He denies chest pain. Denies nausea, vomiting, diarrhea. Denies dysuria or difficulty with urination. No known endocrine symptoms. No current immunosuppression. No psychiatric issues. Physical Examination: VSS. The patient has audible inspiratory stridor, significant dysphonia with voice of low volume, difficult projection and very raspy in quality. He has abnormal cough, which is nonproductive and has an abnormal sound quality. His pupils are equal, round, and reactive. Extraocular movements are intact. Nares are patent. He has a right septal deviation. His oral cavity shows good mouth opening with a large tongue and a small jaw. His neck shows moderate radiation changes with fibrosis and a well-healed tracheostomy site with no persistent fistula. There is no palpable lymphadenopathy. With ambulation and increased activity, he has mild increased work of breathing. Data: CT and PET scan images from October 24 2018 are reviewed. The glottic airway is difficult to evaluate on these axial images. The cricoid and thyroid cartilages are unremarkable. There is minimal narrowing of the subglottic airway and would not be expected to cause difficulty. The thyroid gland is unremarkable. The lower portion of the trachea is normal in appearance. The lung su do not show any obvious masses on my review. NO LAD. The radiology report is reviewed and overall does not show pathologic FDG activity in the larynx or neck. Overall impression from the radiologist is "no convincing evidence of recurrent or residual neoplasia". Assessment: Airway obstruction, stridor, history of laryngeal cancer, malnutrition, at risk for hypothyroidism. Plan: Fiberoptic laryngoscopy in the clinic today. Admit for airway obstruction. Close observation to the ICU with IV antibiotics and IV steroids, though the overall level of edema at the level of the vocal cords is limited. We will keep patient n.p.o. for initial hospitalization in case urgent airway intervention is required. Should the patient require airway intervention, ENT should be on site and preferably in the operating room with the patient due to history of difficult intubation and history of prior tracheostomy. My goal is to reverse the laryngeal inflammation and improve the patient's airway due to acuity of symptoms. If the patient does not improve over 24-48 hours, consideration for surgical airway and possible referral for laryngectomy may need to be considered. We will monitor closely. FOL: After application of afrin/lidocaine to the L NC, the flexible scope is passed through the NC to the [employer]ATOR. No sinus drainage or polyps are noted in the NC. There is mold thick secretion on the posterior pharyngeal wall. The BOT and vallecula are clear. The epiglottis is smooth and normal in shape and color without any edema. The AE folds and arytenoids appear normal in shape without significant edema. The vocal folds appear white and smooth but there is minimal movement of either cord and there is a slit and posterior chink for the air passage. With deep inspiration, there is minimal movement noted of either vocal fold. The postcricoid and hypopharynx appear significantly erythematous and irritated. There is high concern and high risk for complete airway obstruction given these findings in the setting of recent worsening of symptoms as above. JORDEN Voice ID: [id number] [facility]
[2018-11-05] MEDS: D5.45NS W/KCL 20MEQ 1,000 ML IV SCH ×2 (04:47→13:38)
--- NOTE | 2018-11-05 06:37 | RAD REPORT ---
EXAM DESCRIPTION: RAD - Chest Pa And Lat (2 Views) - 11/04/2018 9:29 pm CLINICAL HISTORY: Stridor, airway obstruction COMPARISON: October 25 TECHNIQUE: PA and lateral views of the chest were obtained. FINDINGS: The lungs are mildly fibrotic as a baseline. No peripheral mass or consolidation. No failu re findings. Pacemaker is in place. Subglottic region is not adequately visualized. Heart size is n ormal and central vasculature is within normal limits. No pleural effusion or pneumothorax seen. No acute bony finding noted. No aortic abnormality. IMPRESSION: No acute cardiopulmonary process. Chronic interstitial pattern is similar to comparison .
[2018-11-05] MEDS ORDERED: ZOLPIDEM TARTRATE 5 MG TABLET PO PRN (08:19)
[2018-11-05] MEDS: ASPIRIN 81 MG CHEWABLE TABLET PO SCH (08:23)
[2018-11-05] MEDS: AMLODIPINE 10 MG TAB PO SCH (08:23)
[2018-11-05] MEDS: GEMFIBROZIL 600 MG TAB PO SCH ×2 (08:23→20:26)
[2018-11-05] MEDS: TRAMADOL HCL 50 MG TAB PO PRN ×2 (08:23→20:26)
[2018-11-05] MEDS: CARVEDILOL 6.25 MG TAB PO SCH ×2 (08:23→20:27)
--- NOTE | 2018-11-05 08:29 | P.PN ---
Date of Service: 11/05/18 S: Breathing is more comfortable. c/o not sleeping well, feeling hungry, and chronic back pain is bothering him some. He notes that at baseline, a couple of weeks ago he was able to walk up and down in the neighborhood without VILLA/ SOB at that time. O: VSS, BP 130s/70s today. HR WNL. No fever. No stridor with quiet respirations. Moderate inspiratory stridor with deep inspirations. No increased WOB at rest. Labs: no leukocytosis but increased percentage of neutrophils, no bands A: stridor, B VF paresis, history laryngeal Ca and XRT, history tracheotomy. Mildly improved compared to yesterday P: Resume home meds including BP and pain meds. Start reg diet, thickened liquids preferred but patient taking thin liquids at home. Continue ICU monitoring this morning - will reassess this afternoon for transfer to floor. to bring home CPAP for use tonight. No acute need for tracheostomy at this time. I spoke to Dr Alarcon who saw the patient for routine FU on October 29 - he did not note any stridor or complaints of airway obstruction at that time.
[2018-11-05] MEDS ORDERED: FERROUS FUMARATE PO SCH (09:00)
[2018-11-05] MEDS ORDERED: FOLIC ACID PO SCH (09:00)
[2018-11-05] MEDS ORDERED: FORMOTEROL FUMARATE IH SCH (09:00)
[2018-11-05] MEDS ORDERED: DICLOFENAC SOD D.R. 75 MG TAB PO SCH (09:00)
[2018-11-05] MEDS ORDERED: BUDESONIDE IH SCH (09:00)
[2018-11-05] MEDS: FLUTICASONE 50MCG NASAL SPRAY NAS SCH (09:51)
[2018-11-05] MEDS: HYDRALAZINE HCL 50 MG PO SCH ×3 (10:13→20:25)
[2018-11-05] MEDS: VALSARTAN HCTZ PO SCH (10:14)
[2018-11-05] MEDS: Levofloxacin 750mg IV 750 MG/150 ML BAG IV SCH (16:36)
[2018-11-05] MEDS: DICLOFENAC 75 MG PO SCH (16:37)
[2018-11-05] MEDS ORDERED: ATORVASTATIN 40 MG TAB PO SCH (21:00)
[2018-11-06] MEDS: DEXAMETHASONE 10 MG/ML VIAL IV SCH (00:21)
[2018-11-06] MEDS ORDERED: FE SULF/FA/VIT B COMP & C TAB PO SCH (08:00)
[2018-11-06] MEDS: ASPIRIN 81 MG CHEWABLE TABLET PO SCH (09:00)
[2018-11-06] MEDS: GEMFIBROZIL 600 MG TAB PO SCH (09:00)
[2018-11-06] MEDS: CARVEDILOL 6.25 MG TAB PO SCH (09:00)
[2018-11-06] MEDS: FLUTICASONE 50MCG NASAL SPRAY NAS SCH (09:00)
[2018-11-06] MEDS: DICLOFENAC 75 MG PO SCH ×2 (09:00→16:03)
[2018-11-06] MEDS: HYDRALAZINE HCL 50 MG PO SCH ×2 (10:00→14:35)
[2018-11-06] MEDS: AMLODIPINE 10 MG TAB PO SCH (10:00)
[2018-11-06] MEDS: VALSARTAN HCTZ PO SCH (10:00)
[2018-11-06] MEDS: Levofloxacin 750mg IV 750 MG/150 ML BAG IV SCH (16:02)
--- NOTE | 2018-11-09 06:31 | DS ---
Date of Discharge: 11/06/2018 Primary Care Physician: Dr. Escudero. Admission Diagnoses: Stridor, respiratory distress, and vocal cord paresis. Discharge Diagnoses: Stridor, respiratory distress, and vocal cord paresis. Secondary Diagnoses: History of laryngeal cancer, status post radiation treatment in 2018; history o f tracheostomy for respiratory distress in 2018. Consultations: None. Procedures: None. History Of Present Illness: Mr. Gillette presented to the outpatient clinic on the afternoon of November 04 with acute stridor and a 3-day history of difficulty breathing and abnormal cough without fever. Due to the severity of his breathing difficulty, decision was made to admit him for further treatment. Brief Hospital Course: The patient was placed in the ICU under close monitoring. He was treated wit h IV Levaquin and IV dexamethasone 8 mg every 8 hours for 24 hours. On admission, his white blood ce ll count was not elevated, but he did have a left shift with 83% neutrophils and was mildly anemic. His BUN was mildly elevated and his TSH was 2.15. Physical Examination: The patient was examined at approximately 5 p.m. on November 06. He remained afebrile throughou t his visit. Pulse 86, blood pressure 129/59, oxygen saturation 95% on room air. Pain level 0. The patient appeared visibly more comfortable with no increased work of breathing and significant decrea se in his stridor. He continued to have significantly hoarse voice, which is his baseline. Laboratory Data: Chest x-ray demonstrated no acute process, but do have a mildly fibrotic appearance on baseline and the chronic interstitial pattern was similar to previous studies. No additional lab results are pending. No immunizations were administered. Discharge Disposition: To home. Diet: As tolerated. Discharge Medications: The patient will resume his home medications including blood pressure medicat ion. Additional medications include Levaquin p.o. and a Medrol Dosepak. Discharge Instructions: The patient is instructed to contact Dr. Marie for any change or increased difficulty breathing. Followup appointment with Dr. Marie on November 11 at 8 a.m. /MODL Voice ID: [id number] Report ID: [id number]
== END 2018-11-06 18:17 | disposition home or self-care (01) | DRG 155 ==
LOC: 2ND 16:52 → 3RD-ICU 17:21 → 4TH 11-06 05:20
PROVIDERS: ADMIT Otolaryngology; ATTEND Otolaryngology
DX: J38.02 Paralysis of vocal cords and larynx, bilateral (principal); E46 Unspecified protein-calorie malnutrition; R06.03 Acute respiratory distress; R06.1 Stridor; G47.33 Obstructive sleep apnea (adult) (pediatric); G89.29 Other chronic pain; M54.9 Dorsalgia, unspecified; Z93.1 Gastrostomy status; D64.9 Anemia, unspecified; Z68.33 Body mass index [BMI] 33.0-33.9, adult; Z85.21 Personal history of malignant neoplasm of larynx; Z87.891 Personal history of nicotine dependence; Z95.0 Presence of cardiac pacemaker
CPT/HCPCS: 36415; 71046; 80048; 84443; 85025; 96365; 96367; J1100

== ENCOUNTER 2018-11-28 18:07 | Emergency (ER) | payer OTHER ==
--- OUTSIDE RECORDS SUMMARY | 2018-11-28 18:09 | XMS REPORT | Clinical Summary ---
:1950 Author Organization [facility] Address [address] [place] [address] Care Team Providers Name Role Phone Unavailable Primary Care Provider Unavailable Allergies Not on File Medications Not on file Active Problems Not on file Social History Tobacco Use Types Packs/Day Years Used Date Never Assessed Sex Assigned at Date Recorded Not on file Job Start Date Occupation Industry Not on file Not on file Not on file Travel History Travel Start Travel End No recent travel history available. Last Filed Vital Signs Not on file Plan of Treatment Not on file Results Not on fileafter 11/27/2017 Insurance Payer Benefit Plan / Group Subscriber ID Type Phone Address MEDICARE MEDICARE A B xxxxxxxxxx Medicare
--- OUTSIDE RECORDS SUMMARY | 2018-11-28 18:12 | XMS REPORT | Continuity of Care Document ---
:1950 Author Organization Interface Problems Problem Status Onset Classification Date Comments Source Date Reported Acute respiratory 01/27/20 08/06/2018 [facility] failure with 18 hypoxia SOB Active 01/09/20 [facility] 18 Shane Shortness of 08/06/2018 [facility] breath Pneumonia due to 08/06/2018 [facility] Methicillin susceptible Staphylococcus aureus Hypo-osmolality 08/06/2018 [facility] and hyponatremia Hyperosmolality 08/06/2018 [facility] and hypernatremia Edema of larynx 08/06/2018 [facility] Obstructive sleep 08/06/2018 [facility] apnea (pediatric) Anxiety disorder, 08/06/2018 [facility] unspecified Essential 08/06/2018 [facility] hypertension Hyperlipidemia, 08/06/2018 [facility] unspecified Dehydration 08/06/2018 [facility] Bradycardia, 08/06/2018 [facility] unspecified Hypomagnesemia 08/06/2018 [facility] Dysphagia, 08/06/2018 [facility] oropharyngeal phase Obesity, 08/06/2018 [facility] unspecified Other specified 08/06/2018 [facility] disorders of the skin and subcutaneous tissue related to radiation Anemia, 08/06/2018 [facility] unspecified Elevated white 08/06/2018 [facility] blood cell count, unspecified 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 Diarrhea, 08/06/2018 [facility] unspecified Gastritis, 08/06/2018 [facility] unspecified, without bleeding Gastric ulcer, 08/06/2018 [facility] unspecified as acute or chronic, without hemorrhage or perforation Personal history 08/06/2018 [facility] of nicotine dependence Personal history 08/06/2018 [facility] of irradiation Personal history 08/06/2018 [facility] of antineoplastic chemotherapy Body mass index 08/06/2018 [facility] 39.0-39.9, adult Presence of 08/06/2018 [facility] cardiac pacemaker SHORTNESS OF Active [facility] BREATH [place] Medications Medication Details Route Status Patient Ordering Order Source Instructions Provider Date lisinopril 20 mg 20 mg=1 tab, Active oral tablet PO, Q24H, # 30 2018 [facility] tab, 0 Refill(s) Hydralazine 25 mg=1 tab, Active Hydrochloride 25 MG PO, BID, # 60 2018 [facility] Oral Tablet tab, 0 Refill(s) carvedilol 6.25 mg 6.25 mg=1 tab, Active oral tablet PO, Q12H, # 60 2018 [facility] tab, 0 Refill(s) amLODIPine 10 mg 10 mg=1 tab, Active oral tablet PO, Daily, # 2018 [facility] 30 tab, 0 Refill(s) Magnesium Oxide 800 mg, 2 tab, Inactive Route: PO, 2017 [facility] Drug form: TAB, ONCE, Dosing Weight 118.2, kg, Start date: 01/17/18 17:59:00 CDT, Stop date: 01/17/18 17:59:00 CDTNotes: (Same as: Mag-Ox 400) Magnesium oxide [id number] elemental magnesium Dose=____mg magnesium oxide (___mg elemental magnesium) Magnesium Sulfate 2 gm, 50 mL, Inactive Route: IVPB, 2017 [facility] Drug form: INJ, Q2H, Dosing Weight 118.2, kg, Total dose=4 gm, Start date: 01/17/18 16:00:00 CDT, Duration: 2 doses or times, Stop date: 01/17/18 18:00:00 CDTNotes: WASTE: F/P - Sink; E - Municipal Trash Bin Maalox Advanced 20 mL, Route: Inactive Regular Strength PO, Drug Form: 2017 [facility] SUSP SUSP, Dosing Weight 118.2, kg, ONCE, NOW, Start date: 01/17/18 1:34:00 CDT, Stop date: 01/17/18 1:34:00 CDTNotes: (aluminum hydroxide-magn esium hyd-simethicon e [phone]/5 ml 30 ml ud FADY) Prednisone 40 mg, 2 tab, No Longer Route: PEG, Active 2017 [facility] Drug form: TAB, Daily, Dosing Weight 118.2, kg, Start date: 01/16/18 9:00:00 CDT, Duration: 30 day, Stop date: 02/14/18 9:00:00 CDTNotes: Take with food. benazepril 20 mg, Route: No Longer PO, Drug form: Active 2018 [facility] TAB, Daily, Dosing Weight 118.2, kg, Start date: 01/15/18 9:00:00 CDT, Duration: 30 day, Stop date: 02/13/18 9:00:00 CDT Amlodipine 10 mg, 2 tab, No Longer Route: PO, Active 2018 [facility] Drug form: TAB, Daily, Dosing Weight 118.2, kg, Start date: 01/15/18 9:00:00 CDT, Duration: 30 day, Stop date: 02/13/18 9:00:00 CDTNotes: (Same as: Norvasc) Coreg 6.25 mg, 2 No Longer tab, Route: Active 2017 [facility] PO, Drug form: TAB, Q12H, Dosing Weight 118.2, kg, Start date: 01/14/18 21:00:00 CDT, Duration: 30 day, Stop date: 02/13/18 9:00:00 CDTNotes: Give with food. (Same As: Coreg) Hydralazine 25 mg, 1 tab, No Longer Hydrochloride 25 MG Route: PO, Active 2017 [facility] Oral Tablet Drug form: TAB, BID, Dosing Weight 118.2, kg, Start date: 01/14/18 17:00:00 CDT, Duration: 30 day, Stop date: 02/13/18 9:00:00 CDTNotes: (Same as: Apresoline) May interfere w/enteral feedings Take With Food. lisinopril 20 mg, 1 tab, No Longer Route: PO, Active 2017 [facility] Drug form: TAB, Q24H, Start date: 01/14/18 16:00:00 CDT, Duration: 30 day, Stop date: 02/12/18 16:00:00 CDTNotes: (Same as: Prinivil, Zestril) Levofloxacin 750 mg, 3 tab, No Longer Route: PO, Active 2018 [facility] Drug form: TAB, [id number], Dosing Weight 118.2, kg, Start date: 01/14/18 9:00:00 CDT, Duration: 3 day, Stop date: 01/16/18 9:00:00 CDT, ABX Indication: PneumoniaNotes : Do not give w/antacids, dairy pdt & minerals Take 1 hr before or 2 hr after dairy pdt (Same as:Levaquin) Magnesium Sulfate 1 gm, 100 mL, Inactive Route: IVPB, 2017 [facility] Drug form: INJ, ONCE, Dosing Weight 118.2, kg, Start date: 01/13/18 6:14:00 CDT, Stop date: 01/13/18 6:14:00 CDTNotes: WASTE: F/P - Sink; E - Municipal Trash Bin Famotidine 20 MG 20 mg, 1 tab, No Longer Oral Tablet Route: PO, Active 2017 [facility] Drug form: TAB, Q12H, Dosing Weight 118.2, kg, Start date: 01/11/18 21:00:00 CDT, Duration: 30 day, Stop date: 02/10/18 9:00:00 CDTNotes: (Same as: Pepcid) Melatonin 3 MG 3 mg, 1 tab, No Longer Extended Release Route: PO, Active 2017 [facility] Tablet Drug Form: TAB, Dosing Weight 118.2, kg, ONCE, NOW, Start date: 01/11/18 20:30:00 CDT, Stop date: 01/11/18 20:30:00 CDTNotes: (Same as: Melatonin) Aluminum Hydroxide 5 mL, Route: No Longer 40 MG/ML / S&SPIT, Drug Active 2017 [facility] Magnesium Hydroxide Form: SUSP, 40 MG/ML / Dosing Weight Simethicone 4 MG/ML 118.2, kg, Oral Suspension TID, Start [Mi-Acid] date: 01/11/18 17:00:00 CDT, Stop date: 02/10/18 13:00:00 CDTNotes: (aluminum hydroxide-magn esium hyd- simethicone [phone]/5 ml 30 ml ud FADY) Silver Sulfadiazine 1 appl, Route: No Longer 10 MG/ML Topical TOP, BID, Drug Active 2018 [facility] Cream form: CRM, Start date: 01/11/18 17:00:00 CDT, Duration: 30 day, Stop date: 02/10/18 9:00:00 CDTNotes: (Same as: Silvaangel) WASTE: F/P - Black; E - Municipal Trash Bin Protonix 40 mg, 1 pkt, No Longer Route: PEG, Active 2017 [facility] Drug form: GRAN/REC, BID, Dosing Weight 118.2, kg, Start date: 01/11/18 17:00:00 CDT, Duration: 30 day, Stop date: 02/10/18 9:00:00 CDTNotes: Same as: Protonix Mix in 5 mL apple juice or applesauce for oral & 10mL apple juice for NG tube Aquaphor 1 appl, Route: No Longer TOP, Q12H, Active 2017 [facility] Drug form: OINT, PRN Dry Skin, Start date: 01/11/18 15:07:00 CDT, Duration: 30 day, Stop date: 02/10/18 15:06:00 CDT chlorhexidine 15 mL, Route: No Longer gluconate 1.2 MG/ML Swab Mouth, Active 2017 [facility] Mouthwash Q12H, Drug form: LIQ, Start date: 01/09/18 21:00:00 CDT, Duration: 30 day, Stop date: 02/08/18 9:00:00 CDTNotes: (Same As: Peridex) Famotidine 20 mg, Route: Inactive IVPB, Q12H, 2017 [facility] Dosing Weight 118.2, kg, Start date: 01/09/18 21:00:00 CDT, Duration: 30 day, Stop date: 02/08/18 9:00:00 CDT famotidine 20 mg, 2 mL, No Longer Route: IVP, Active 2017 [facility] Drug form: INJ, Q12H, Start date: 01/09/18 [...] (ANES) Route: IV, Inactive Drug form: 2017 [facility] INJ, ONCE, Stop date: 01/09/18 15:27:00 CDT hydrALAZINE (ANES) Route: IV, Inactive Drug form: 2017 [facility] INJ, ONCE, Stop date: 01/09/18 15:27:00 CDT fentaNYL (ANES) Route: IV, Inactive Drug form: 2017 [facility] INJ, ONCE, Stop date: 01/09/18 15:15:00 CDT [...] Inactive Injection IV (ANES) Total Volume: 2017 [facility] 1000 mL 1,000, Start date: 01/09/18 14:30:00 CDT, Stop date: 01/09/18 15:30:00 CDT Labetalol 10 mg, 2 mL, No Longer Route: IVP, Active 2017 [facility] Drug form: INJ, Q6H, Dosing Weight 118.2, kg, PRN Hypertension, Start date: 01/09/18 11:01:00 CDT, Duration: 30 day, Stop date: 02/08/18 11:00:00 CDT Hydralazine 10 mg, Route: Inactive IVP, Q6H, 2017 [facility] Dosing Weight 118.2, kg, PRN Hypertension, Start date: 01/09/18 10:51:00 CDT, Duration: 30 day, Stop date: 02/08/18 10:50:00 CDT Naproxen sodium 220 220 mg=1 tab, No Longer MG Oral Tablet PO, Q8H, PRN Active 2017 [facility] [Aleve] Headache, # 30 tab, 0 Refill(s) Hydralazine 25 mg=1 tab, No Longer Hydrochloride 25 MG PO, TID, # 90 Active 2017 [facility] Oral Tablet tab, 3 Refill(s) tramadol 50 mg=1 tab, No Longer hydrochloride 50 MG PO, BID, # 30 Active 2018 [facility] Oral Tablet tab, 0 Refill(s) carvedilol 6.25 mg 6.25 mg=1 tab, No Longer oral tablet PO, BID, # 180 Active 2017 [facility] tab, 3 Refill(s) Fenofibrate 54 MG 54 mg=1 tab, No Longer Oral Tablet PO, BID, # 30 Active 2017 [facility] tab, 0 Refill(s) diclofenac sodium 75 mg=1 tab, No Longer 75 mg oral enteric PO, BID, PRN Active 2018 [facility] coated, Pain, # 60 delayed-release tab, 0 tablet Refill(s) 60 ACTUAT 50 microgram=1 No Longer Fluticasone ea, Active 2017 [facility] propionate 0.05 INHALATION, MG/ACTUAT Dry BID, # 60 ea, Powder Inhaler 0 Refill(s) Aspirin 81 MG 81 mg=1 tab, No Longer Chewable Tablet PO, Daily, Active 2018 [facility] tab, 0 Refill(s) Tylenol PO, 0 No Longer Refill(s) Active 2018 [facility] Amlodipine 10 MG / 1 cap, PO, No Longer Benazepril Daily, # 30 Active 2018 [facility] hydrochloride 20 MG cap, 0 Oral Capsule Refill(s) Hydrochlorothiazide 1 tab, 0 No Longer 25 MG / valsartan Refill(s) Active 2018 [facility] 320 MG Oral Tablet atorvastatin 40 mg 80 mg=2 tab, No Longer oral tablet PO, Bedtime, # Active 2018 [facility] 30 tab, 0 Refill(s) methylPREDNISolone 40 mg, 1 mL, No Longer SODium SUCCinate Route: IVP, Active 2017 [facility] Drug form: INJ, Q12H, Dosing Weight 118.2, kg, Start date: 01/09/18 9:00:00 CDT, Duration: 30 day, Stop date: 02/07/18 21:00:00 CDTNotes: (Same as:Solu-MEDROL , A-Methapred) Mupirocin 20 MG/ML 1 appl, Route: No Longer Topical Cream TOP, TID, Drug Active 2017 [facility] form: OINT, Start date: 01/09/18 9:00:00 CDT, Duration: 7 day, Stop date: 01/15/18 17:00:00 CDT Budesonide 0.5 mg, 2 mL, No Longer Route: NEB, Active 2017 [facility] Drug form: SUSP, RBID, Dosing Weight 118.2, kg, Start date: 01/09/18 8:07:00 CDT, Duration: 30 day, Stop date: 02/08/18 8:00:00 CDTNotes: (Same As: Pulmicort) Unasyn 1.5 gm, 1 ea, No Longer Route: IVPB, Active 2017 [facility] ABXQ6H, Dosing Weight 118.2, kg, Start date: 01/09/18 8:00:00 CDT, Duration: 7 day, Stop date: 01/16/18 2:00:00 CDTNotes: Dosing based on Ampicillin component (Same as: Unasyn) Fentanyl 25 microgram, No Longer 0.5 mL, Route: Active 2017 [facility] IV, Drug form: INJ, Q4H, Dosing Weight 118.2, kg, PRN Pain Score 7-10, Start date: 01/09/18 7:57:00 CDT, Duration: 30 day, Stop date: 02/08/18 7:56:00 CDTNotes: (Same as: Sublimaze) Preservative free. sodium phosphate 15 mmol, 5 mL, No Longer Route: IVPB, Active 2017 [facility] PRN, Dosing Weight 118.2, kg, PRN Abnormal Lab Result, Start date: 01/09/18 7:56:00 CDT, Duration: 30 day, Stop date: 02/08/18 7:55:00 CDT, FOR ICU USE ONLY Potassium Chloride 20 mEq, 15 mL, No Longer Route: NJ, Active 2017 [facility] Drug form: LIQ, PRN, Dosing Weight 118.2, kg, PRN Abnormal Lab Result, Start date: 01/09/18 7:56:00 CDT, Duration: 30 day, Stop date: 02/08/18 7:55:00 CDT, FOR ICU USE ONLYNotes: (Same as: Potassium Chloride) Calcium Carbonate 500 mg, 1 tab, No Longer 500 MG Chewable Route: PO, Active 2017 [facility] Tablet Drug form: CHEWTAB, PRN, Dosing Weight 118.2, kg, PRN Abnormal Lab Result, FOR ICU USE ONLY, Start date: 01/09/18 7:56:00 CDT, Duration: 30 day, Stop date: 02/08/18 7:55:00 CDTNotes: (Same As: Tums) Calcium Carbonate 500 wy=468 mg elemental calcium Dose= mg calcium carbonate ( mg elemental calcium) Magnesium Oxide 800 mg, 2 tab, No Longer Route: PO, Active 2017 [facility] Drug form: TAB, PRN, Dosing Weight 118.2, kg, PRN Abnormal Lab Result, FOR ICU USE ONLY, Start date: 01/09/18 7:56:00 CDT, Duration: 30 day, Stop date: 02/08/18 7:55:00 CDTNotes: (Same as: Mag-Ox 400) Magnesium oxide [id number] elemental magnesium Dose=____mg magnesium oxide (___mg elemental magnesium) Calcium Gluconate 1 gm, 10 mL, No Longer Route: IVPB, Active 2017 [facility] PRN, Dosing Weight 118.2, kg, PRN Abnormal Lab Result, Start date: 01/09/18 7:56:00 CDT, Duration: 30 day, Stop date: 02/08/18 7:55:00 CDT, FOR ICU USE ONLYNotes: WASTE: F/P - Sink; E - Municipal Trash Bin potassium 2 pkt, Route: No Longer phosphate-sodium PO, Drug Form: Active 2017 [place] [employer] phosphate 250 PDR/REC, mg-280 mg-160 mg Dosing Weight oral powder for 118.2, kg, reconstitution PRN, PRN Abnormal Lab Result, FOR ICU USE ONLY, Start date: 01/09/18 7:56:00 CDT, Duration: 30 day, Stop date: 02/08/18 7:55:00 CDTNotes: (Same as: Phos-NaK) Each 1.5 gm pkt has 250mg phosphorous. Mix w/2.5oz water and stir. Magnesium Sulfate 2 gm, 4 mL, No Longer Route: IVPB, Active 2017 [facility] PRN, Dosing Weight 118.2, kg, PRN Abnormal Lab Result, Start date: 01/09/18 7:56:00 CDT, Stop date: 02/08/18 7:55:00 CDT, FOR ICU USE ONLYNotes: (Same as: MgSO4) WASTE: F/P - Sink; E - Municipal Trash Bin MEDICATION WASTE Product Size: 1000 mg Product Wasted: ___ mg potassium phosphate 30 mmol, 10 No Longer mL, Route: Active 2018 [facility] IVPB, PRN, Dosing Weight 118.2, kg, PRN [...] Longer MG/ML Inhalant Route: NEB, Active 2018 [facility] Solution Drug form: SOLN, PRN, Dosing Weight 118.2, kg, PRN Respiratory Pathway, Start date: 01/09/18 7:53:00 CDT, Duration: 30 day, Stop date: 02/08/18 7:52:00 CDTNotes: SEE RT DOCUMENTATION (Same as: Proventil) D5W 1,000 mL 1,000 mL, No Longer Rate: 50 Active 2018 [facility] ml/hr, Infuse over: 20 hr, Route: IV, Dosing Weight 118.2 kg, Total Volume: 1,000, Start date: 01/09/18 1:44:00 CDT, Stop date: 02/08/18 1:44:00 CDT, 2.41, m2 Lovenox 40 mg, 0.4 mL, No Longer Route: SUB-Q, Active 2017 [facility] Drug form: INJ, [id number], Dosing Weight 118.2, kg, Start date: 01/09/18 1:00:00 CDT, Duration: 30 day, Stop date: 02/07/18 1:00:00 CDTNotes: (Same as: Lovenox) Dextrose 5% with 1,000 mL, Inactive 0.45% NaCl IV 1,000 Rate: 75 2018 [facility] mL ml/hr, Infuse over: 13.3 hr, Route: IV, Dosing Weight 118.2 kg, Total Volume: 1,000, Start date: 01/09/18 0:48:00 CDT, Duration: 30 day, Stop date: 02/08/18 0:47:00 CDT, 2.41, m2 Acetaminophen 650 mg, 2 tab, No Longer Route: PO, Active 2017 [facility] Drug form: TAB, Q4H, Dosing Weight 118.2, kg, PRN Pain 1-3/Temp > 100.4 F, Start date: 01/09/18 0:40:00 CDT, Duration: 30 day, Stop date: 02/08/18 0:39:00 CDTNotes: Do not exceed 4 gm/day. (Same as: Tylenol) Ondansetron 4 mg, 2 mL, No Longer Route: IVP, Active 2017 [facility] Drug form: INJ, Q6H, Dosing Weight 118.2, kg, PRN Nausea & Vomiting, Start date: 01/09/18 0:40:00 CDT, Duration: 30 day, Stop date: 02/08/18 0:39:00 CDTNotes: (Same as: Zofran) MEDICATION WASTE Product Size: 4 mg Product Wasted: ___ mg Dextrose 5% with 1,000 mL, Inactive 0.45% NaCl IV 1,000 Rate: 125 2017 [facility] mL ml/hr, Infuse over: 8 hr, Route: IV, Dosing Weight 118.2 kg, Total Volume: 1,000, Start date: 01/09/18 0:40:00 CDT, Duration: 30 day, Stop date: 02/08/18 0:39:00 CDT, 2.41, m2 Saline Flush 0.9% 10 ml, Route: No Longer IVP, Drug Active 2017 [facility] Form: INJ, Dosing Weight 118.2, kg, PRN, PRN Line Flush, Start date: 01/09/18 0:40:00 CDT, Duration: 30 day, Stop date: 02/08/18 0:39:00 CDTNotes: (Same as: BD Posiflush) Allergies, Adverse Reactions, Alerts Substance Category Reaction Severity Reaction Status Date Comments Source type Reported MS Contin Assertion Drug Active allergy [facility] Immunizations Immunization Date Given Site Status Last Updated Comments Source Results Order Name Results Value Reference Date Interpretation Comments Source Range Esophagus Esophagus BA Patient Name: MARY JIMENEZ 01/17 - [facility] swallow swallow /2017 - [place] function function : 1950; Age: 67 years y/o Male video DX video DX MR: [id number] Read by: [place] Rich MD Dictated Date/time: [...] cough reflex noted within liquids by cup. [place], pudding and solids were well-tolerated, however. Please see speech pathologist report for more detailed data, recommendations for follow-up. SL: [id number] CHEM PANEL Magnesium 1.5 mg/dL 1.8 - 2.4 01/17 Lvl [facility] CHEM PANEL BUN 18 mg/dL 7 - 01/17 [facility] CHEM PANEL Creatinine 0.52 mg/dL 0.50 - 01/17 MH Lvl 1.40 [facility] CHEM PANEL Glucose Lvl 83 mg/dL 70 - 99 01/17 [facility] CHEM PANEL Chloride Lvl 108 meq/L 95 - 109 01/17 [facility] CHEM PANEL Sodium Lvl 143 meq/L 135 - 145 01/17 [facility] CHEM PANEL Potassium 3.8 meq/L 3.5 - 5.1 01/17 MH Lv [facility] CHEM PANEL eGFR 112 01/17 Result Comment: [...] is not recommended in the following populations: [place] [address] Individuals with unstable creatinine concentrations, including patients [...] 12.8 meq/L 10.0 - 01/17 MH 20. [facility] CHEM PANEL CO2 26 meq/L 24 - 32 01/17 [facility] CHEM PANEL Calcium Lvl 7.7 mg/dL 8.5 - 10.5 01/17 [facility] HEMATOLOGY WBC 13.7 K/CMM 3.7 - 10.4 01/17 [facility] HEMATOLOGY MCV 92.0 fL 80.0 - 01/17 MH 94.0 [facility] HEMATOLOGY Hgb 10.0 g/dL 14.0 - 01/17 MH 18.0 [facility] HEMATOLOGY Hct 29.2 % 42.0 - 01/17 MH 54.0 [facility] HEMATOLOGY RBC 3.17 M/CMM 4.70 - 01/17 MH 6.10 [facility] HEMATOLOGY MPV 8.6 fL 7.4 - 10.4 01/17 [facility] HEMATOLOGY Platelet 294 K/CMM 133 - 450 01/17 [facility] HEMATOLOGY MCHC 34.4 g/dL 32.0 - 01/17 MH 36.0 [facility] HEMATOLOGY MCH 31.7 pg 27.0 - 01/17 31.0 [facility] HEMATOLOGY RDW 14.5 % 11.5 - 01/17 14. [facility] CHEM PANEL eGFR 108 01/15 Result Comment: [...] is not recommended in the following populations: [place] [address] Individuals with unstable creatinine concentrations, including patients [...] Lvl 143 meq/L 135 - 145 01/15 [facility] CHEM PANEL Potassium 4.5 meq/L 3.5 - 5.1 01/15 Lv [facility] CHEM PANEL Chloride Lvl 109 meq/L 95 - 109 01/15 [facility] CHEM PANEL CO2 28 meq/L 24 - 32 01/15 [facility] CHEM PANEL Calcium Lvl 7.7 mg/dL 8.5 - 10.5 01/15 [facility] CHEM PANEL Creatinine 0.57 mg/dL 0.50 - 01/15 MH Lvl 1.40 [facility] CHEM PANEL Glucose Lvl 115 mg/dL 70 - 99 01/15 [facility] CHEM PANEL BUN 22 mg/dL 7 - 22 01/15 [facility] CHEM PANEL AGAP 10.5 meq/L 10.0 - 01/15 MH 20.0 [facility] CHEM PANEL Magnesium 1.7 mg/dL 1.8 - 2.4 01/15 Lv [facility] HEMATOLOGY WBC 14.6 K/CMM 3.7 - 10.4 01/15 [facility] HEMATOLOGY RBC 3.17 M/CMM 4.70 - 01/15 MH 6.10 [facility] HEMATOLOGY Hgb 9.9 g/dL 14.0 - 01/15 MH 18.0 [facility] HEMATOLOGY MPV 8.7 fL 7.4 - 10.4 01/15 [facility] HEMATOLOGY Platelet 297 K/CMM 133 - 450 01/15 [facility] HEMATOLOGY MCV 92.4 fL 80.0 - 01/15 MH 94.0 [facility] HEMATOLOGY MCH 31.3 pg 27.0 - 01/15 MH 31.0 [facility] HEMATOLOGY RDW 14.1 % 11.5 - 01/15 MH 14. [facility] HEMATOLOGY Hct 29.3 % 42.0 - 01/15 MH 54.0 [facility] HEMATOLOGY MCHC 33.8 g/dL 32.0 - 01/15 MH 36.0 [facility] HEMATOLOGY Lymphocytes 0.1 K/CMM 1.0 - 5.5 01/15 MH # /2017 [facility] HEMATOLOGY Monocytes # 0.6 K/CMM 0.0 - 0.8 01/15 [facility] HEMATOLOGY Monocytes 4.4 % 2.0 - 12.0 01/15 [facility] HEMATOLOGY Neutrophils 13.8 K/CMM 1.5 - 8.1 01/15 MH # [facility] HEMATOLOGY Basophils 0.1 % 0.0 - 1.0 01/15 [facility] HEMATOLOGY Lymphocytes 1.0 % 20.0 - 01/15 MH 40.0 [facility] HEMATOLOGY Segs 94.5 % 45.0 - 01/15 MH 75.0 [facility] CHEM PANEL Phosphorus 2.1 mg/dL 2.5 - 4.5 01/14 [facility] CHEM PANEL Magnesium 2.3 mg/dL 1.8 - 2.4 01/14 MH Lvl /2017 [facility] ELECTROLYTE AGAP 9.3 meq/L 10.0 - 01/14 MH S 20.0 [facility] ELECTROLYTE eGFR 106 01/14 Result Comment: The [...] is not recommended in the following populations: [address] Individuals with unstable creatinine concentrations, including [...] 7.5 mg/dL 8.5 - 10.5 01/14 S [facility] ELECTROLYTE CO2 29 meq/L 24 - 32 01/14 [facility] ELECTROLYTE Creatinine 0.59 mg/dL 0.50 - 01/14 S Lvl 1.40 [facility] ELECTROLYTE Sodium Lvl 143 meq/L 135 - 145 01/14 [facility] ELECTROLYTE Chloride Lvl 109 meq/L 95 - 109 01/14 [facility] ELECTROLYTE Glucose Lvl 148 mg/dL 70 - 99 01/14 [facility] ELECTROLYTE Potassium 4.3 meq/L 3.5 - 5.1 01/14 S Lvl /2017 [facility] ELECTROLYTE BUN 25 mg/dL 7 - 22 01/14 [facility] HEMATOLOGY RDW 14.4 % 11.5 - 01/14 MH 14. [facility] HEMATOLOGY Platelet 313 K/CMM 133 - 450 01/14 [facility] HEMATOLOGY MPV 7.9 fL 7.4 - 10.4 01/14 [facility] HEMATOLOGY WBC 13.8 K/CMM 3.7 - 10.4 01/14 [facility] HEMATOLOGY RBC 3.12 M/CMM 4.70 - 01/14 MH 6.10 [facility] HEMATOLOGY Hct 29.2 % 42.0 - 01/14 MH 54.0 [facility] HEMATOLOGY Hgb 9.7 g/dL 14.0 - 01/14 MH 18.0 [facility] HEMATOLOGY MCHC 33.3 g/dL 32.0 - 01/14 MH 36.0 [facility] HEMATOLOGY MCV 93.6 fL 80.0 - 01/14 MH 94.0 [facility] HEMATOLOGY MCH 31.2 pg 27.0 - 01/14 MH 31.0 /2018 [facility] HEMATOLOGY Lymphocytes 0.7 % 20.0 - 01/14 MH 40.0 /2017 [facility] HEMATOLOGY Monocytes 3.9 % 2.0 - 12.0 01/14 MH /2017 [facility] HEMATOLOGY Neutrophils 13.1 K/CMM 1.5 - 8.1 01/14 MH # /2018 [facility] HEMATOLOGY Eosinophils 0.1 % 0.0 - 4.0 01/14 MH /2017 [facility] HEMATOLOGY Lymphocytes 0.1 K/CMM 1.0 - 5.5 / MH # /2018 [facility] HEMATOLOGY Monocytes # 0.5 K/CMM 0.0 - 0.8 01/14 /2017 [facility] HEMATOLOGY Segs 95.3 % 45.0 - 01/14 MH 75.0 /2017 [facility] Chest 1view Chest 1view Clinical Indication: - S/p tracheostomy, non mrsa pneumonia. 01/14 - [facility] [place] Comparison: None Read by: Sandeep Tee MD [...] Tracheostomy tube appears in good position. SL: [id number] CHEM PANEL Phosphorus 2.5 mg/dL 2.5 - 4.5 01/13 [facility] CHEM PANEL ALT 77 unit/L 0 - 65 01/13 [facility] CHEM PANEL Bili Total 0.5 mg/dL 0.2 - 1.3 01/13 [facility] CHEM PANEL AST 42 unit/L 0 - 37 01/13 [facility] CHEM PANEL Alk Phos 46 unit/L 39 - 136 01/13 [facility] CHEM PANEL Total 5.7 g/dL 6.4 - 8.4 01/13 [facility] CHEM PANEL Albumin Lvl 2.2 g/dL 3.5 - 5.0 01/13 [facility] CHEM PANEL B/C Ratio 39 6 - 25 01/13 [facility] CHEM PANEL A/G Ratio 0.6 0.7 - 1.6 01/13 [facility] CHEM PANEL Globulin 3.5 g/dL 2.7 - 4.2 07 [facility] HEMATOLOGY Lymphocytes 0.1 K/CMM 1.0 - 5.5 07 [facility] # /2017 [facility] HEMATOLOGY Monocytes # 0.3 K/CMM 0.0 - 0.8 01/13 [facility] HEMATOLOGY Neutrophils 12.8 K/CMM 1.5 - 8.1 01/13 [facility] # [facility] HEMATOLOGY Basophils 0.2 % 0.0 - 1.0 01/13 [facility] HEMATOLOGY Monocytes 2.2 % 2.0 - 12.0 01/13 [facility] HEMATOLOGY Segs 96.6 % 45.0 - 01/13 [facility] 75.0 [facility] HEMATOLOGY Lymphocytes 1.0 % 20.0 - 01/13 [facility] 40.0 [facility] PARATHYROID Ca Ion WB 1.11 1.05 - 01/13 [facility] PROFILE mMol/L . [facility] PARATHYROID Ca Norm WB 1.12 1.05 - 01/13 [facility] PROFILE mMol/L 1. [facility] CHEM PANEL Globulin 3.6 g/dL 2.7 - 4.2 01/12 [facility] CHEM PANEL A/G Ratio 0.6 0.7 - 1.6 01/12 [facility] CHEM PANEL B/C Ratio 32 6 - 25 01/12 [facility] CHEM PANEL Bili Total 0.4 mg/dL 0.2 - 1.3 01/12 [facility] CHEM PANEL Alk Phos 47 unit/L 39 - 136 01/12 [facility] CHEM PANEL Albumin Lvl 2.1 g/dL 3.5 - 5.0 01/12 [facility] CHEM PANEL ALT 61 unit/L 0 - 65 01/12 [facility] CHEM PANEL AST 44 unit/L 0 - 37 01/12 [facility] CHEM PANEL Total 5.7 g/dL 6.4 - 8.4 07/14 MH Protein /2017 [facility] HEMATOLOGY PT 21.0 s 12.0 - 01/12 MH 14.7 /2017 [facility] HEMATOLOGY INR 1.80 0.85 - 01/12 MH 1.17 [facility] HEMATOLOGY PTT 30.4 s 22.9 - 01/12 MH 35.8 [facility] HEMATOLOGY Basophils 0.3 % 0.0 - 1.0 01/12 [facility] CHEM PANEL Phosphorus 2.9 mg/dL 2.5 - 4.5 01/11 [facility] HEMATOLOGY Eosinophils 0.1 % 0.0 - 4.0 01/11 [facility] MOLECULAR C difficile Negative Negative 01/09 DIAGNOSTIC DNA [facility] (01/09/18 8:44 AM) TETRACYCLIN Gram Stain Gram Stain 01/09 E:SUSC:PT:I Report [facility] SOLATE:ORDQ By: N:DESHAUN [facility] TETRACYCLIN Culture: Many 01/09 E:SUSC:PT:I Respiratory Staphyloco [facility] SOLATE:ORDQ w/Gram Stain ccus N:DESHAUN aureus TETRACYCLIN Staphylococc Staphyloco 01/09 E:SUSC:PT:I us aureus ccus [facility] SOLATE:ORDQ aureus N:DESHAUN Neck soft Neck soft Patient Name: MARY JIMENEZ 01/09 - [facility] w - [place] contrast CT contrast CT : 1950; Age: 67 years y/o Male MR: [id number] Read by: Namrata Torres Dictated Date/time: 01/09/18 [...] with prior imaging recommended. No worrisome adenopathy. [id number]-ufowhaur degenerative changes in the cervical spine. SL: [id number] HEMATOLOGY Bands 5.0 % 0.0 - 11.0 01/09 [facility] HEMATOLOGY RBC Morph Normal 01/09 [facility] (01/09/18 12:55 AM) HEMATOLOGY Plt Morph Normal 01/09 [facility] (01/09/18 12:55 AM) HEMATOLOGY Atypical 0.0 % <=0.0 % 01/09 Lymph [facility] BACTERIAL - MRSA by PCR Negative 01/09 [facility] (01/09/18 12:42 AM) Vital Signs Vital Sign Value Date Comments Source Respitory Rate 17 01/18/2018 [facility] Heart Rate 85 01/17/2018 [facility] Respitory Rate 20 01/17/2018 [facility] Temperature Oral (F) 98.5 F 01/17/2018 [facility] Systolic (mm Hg) 116 01/17/2018 [facility] Diastolic (mm Hg) 68 01/17/2018 [facility] Temperature Oral (F) 98.4 F 01/17/2018 [facility] Respitory Rate 20 01/17/2018 [facility] Heart Rate 80 01/17/2018 [facility] Systolic (mm Hg) 138 01/17/2018 [facility] Diastolic (mm Hg) 75 01/17/2018 [facility] Systolic (mm Hg) 144 01/17/2018 [facility] Diastolic (mm Hg) 73 01/17/2018 [facility] Heart Rate 84 01/17/2018 [facility] Temperature Oral (F) 98.3 F 01/17/2018 [facility] Height 172.72 cm 01/09/2018 [facility] Weight 118.2 01/09/2018 [facility] Weight 118.2 01/09/2018 [facility] BMI Calculated 39.62 01/09/2018 [facility] Height 172.72 cm 01/09/2018 [facility] Encounters Location Location Encounter Encounter Reason Attending ADM DC Status Source Details Type Number For Provider Date Date Visit [facility] [id number] [facility] 01/09 01/18 Shane Ryan /2017 [facility] Procedures Procedure Code Date Perfomer Comments Source
--- OUTSIDE RECORDS SUMMARY | 2018-11-28 18:14 | XMS REPORT ---
:1950 [facility] Address [address] [place] [address] Dr. Mitchell [address] [place] [id number] Care Team Providers Name Role Phone Unavailable Unavailable Unavailable Problems This patient has no known problems. Allergies, Adverse Reactions, Alerts This patient has no known allergies or adverse reactions. Medications This patient has no known medications.
[2018-11-28] MEDS ORDERED: DEXAMETHASONE 10 MG/ML VIAL ONE (18:47)
[2018-11-28 19:00] LABS: Absolute Lymphocytes (CBC) 0.7 K/uL (0.7-4.9); Absolute Monocytes 0.6 K/uL (0.1-1.3); Basophils % 0.5 % (0-1.3); Eosinophils % 12.4 % (0-4.4); Hematocrit 31.4 % (39.6-49.0); Lymphocytes % 5.6 % (15.3-44.8); Monocytes % 5.3 % (3.3-12.3)
[2018-11-28 19:01] LABS: Protime INR 1.1
[2018-11-28 19:11] LABS: ALT/SGPT 11 U/L (12-78); AST/SGOT 11 U/L (15-37); Alkaline Phosphatase 80 U/L (45-117); BUN Blood Urea Nitrogen 18 mg/dL (7-18); Bicarbonate 28 mmol/L (21-32); Bilirubin Total 0.2 mg/dL (0.2-1.0); Glucose Level 97 mg/dL (74-106); Potassium 4.5 mmol/L (3.5-5.1); Protein, Total 7.3 g/dL (6.4-8.2); Sodium Level 135 mmol/L (136-145); Troponin (Emerg Dept Use Only) < 0.02 ng/mL (0.0-0.045)
--- NOTE | 2018-11-28 19:45 | RAD REPORT ---
EXAM DESCRIPTION: CT - Soft Tissue Neck W/Contr CLINICAL HISTORY: shortness of breath Laryngeal neoplasia COMPARISON: Rad Therapy [facility] Neck dated 10/31/2017; Soft Tissue Neck W/Contr dated 10/05/[address] scans are performed using dose optimization technique as appropriate and may includ e automated exposure control or mA/KV adjustment according to patient size. FINDINGS: Mild thickening of the left true cord is seen. Left piriform sinus is under aerated. These findings can be attributable to radiation therapy. No bulky lymphadenopathy in the neck. No prevertebral soft tissue swelling or abscess. Salivary gland s are symmetric. Thyroid gland is normal in appearance. Upper lung su are clear. IMPRESSION: No acute finding is seen.
--- NOTE | 2018-11-28 21:11 | ER ---
Nurse's Notes [facility] Name: Oliver Gillette Age: 67 yrs Sex: Male : 1950 Arrival Date: 11/28/2018 Time: 18:14 Bed 14 Private MD: Diagnosis: Other diseases of vocal cords Presentation: 11/28 18:14 Presenting complaint: Patient states: Difficulty breathing today. HX of throat cancer aj and seen in this ER for same complaint a few weeks ago. Sent by Dr Marie. Transition of care: patient was not received from another setting of care. Onset of symptoms was November 28, 2018. Risk Assessment: Do you want to hurt yourself or someone else? Patient reports no desire to harm self or others. Initial Sepsis Screen: Does the patient meet any 2 criteria? No. Patient's initial sepsis screen is negative. Does the patient have a suspected source of infection? No. Patient's initial sepsis screen is negative. Care prior to arrival: None. 18:14 Method Of Arrival: Wheelchair aj 18:14 Acuity: KRISTIN 2 aj Triage Assessment: 18:16 General: Appears in no apparent distress. uncomfortable, Behavior is calm, cooperative, aj appropriate for age. Pain: Denies pain. Neuro: Level of Consciousness is awake, alert, obeys commands, Oriented to person, place, time, situation, Appropriate for age. Respiratory: Reports shortness of breath Airway is compromised Trachea midline Respiratory effort is even, labored, Respiratory pattern is tachypnea Stridor noted the patient has moderate shortness of breath. Respiratory: Onset: The symptoms/episode began/occurred today. Derm: Skin is intact, is healthy with good turgor, Skin is pink, warm \T\ dry. normal. Historical: - Allergies: 18:16 Morphine; aj 18:16 MS Contin; aj - PMHx: 18:16 Cancer Throat; aj - Immunization history:: Adult Immunizations up to date. - Social history:: Smoking status: Patient/guardian denies using tobacco. - Ebola Screening: : Patient negative for fever greater than or equal to 101.5 degrees Fahrenheit, and additional compatible Ebola Virus Disease symptoms Patient denies exposure to infectious person Patient denies travel to an Ebola-affected area in the 21 days before illness onset No symptoms or risks identified at this time. Screenin:30 Abuse screen: Denies threats or abuse. Nutritional screening: No deficits noted. aa5 Tuberculosis screening: No symptoms or risk factors identified. Fall Risk None identified. Assessment: 18:16 General: Appears uncomfortable, Behavior is cooperative. Pain: Denies pain. Neuro: aa5 Level of Consciousness is awake, alert, obeys commands, Oriented to person, place, time, situation. Cardiovascular: Heart tones S1 S2 present Rhythm is regular. Respiratory: Reports shortness of breath at rest Airway is patent Respiratory effort is even, unlabored, Respiratory pattern is regular, symmetrical, Breath sounds are diminished bilaterally. Denies cough. GI: Abdomen is round PEG tube in place, Site clean. : No signs and/or symptoms were reported regarding the genitourinary system. EENT: stridor noted. Pt denies difficulty swallowing. Pt's family reports pt normally has stridor but it got worse today. . Derm: Skin is pink, warm \T\ dry. Musculoskeletal: Range of motion: intact in all extremities. 19:15 Reassessment: Patient appears in no apparent distress at this time. Patient states lp1 feeling better. Neuro: Level of Consciousness is awake, alert, obeys commands. Respiratory: Respiratory effort is even, Stridor noted the patient has mild shortness of breath. GI: PEG tube. Derm: Skin is intact, Skin is dry, Skin is normal. 19:50 Reassessment: Patient returned from CT. lp1 20:45 Reassessment: No changes from previously documented assessment. Dr. Kang at bedside to lp1 discuss plan of care with patient and family. Vital Signs: 18:16 BP 181 / 80; Pulse 97; Resp 26; Temp 98.4; Pulse Ox 96% on R/A; Weight 100.24 kg; aj Height 5 ft. 8 in. (172.72 cm); 18:30 BP 140 / 75; Pulse 79; Resp 22 S; Pulse Ox 98% on R/A; aa5 19:15 BP 148 / 73; Pulse 83; Resp 12; Pulse Ox 97% on 2 lpm NC; lp1 20:00 BP 139 / 62; Pulse 87; Resp 12; Pulse Ox 100% on 2 lpm NC; lp1 20:30 BP 138 / 63; Pulse 86; Resp 12; Pulse Ox 97% on R/A; lp1 21:31 BP 148 / 68; Pulse 88; Resp 12; Pulse Ox 96% on R/A; Pain 0/10; lp1 18:16 Body Mass Index 33.60 (100.24 kg, 172.72 cm) ED Course: 18:14 Patient arrived in ED. 18:15 Triage completed. 18:16 Arm band placed on left wrist. Patient placed in an exam room. 18:16 Patient has correct armband on for positive identification. Bed in low position. Call aa5 light in reach. Side rails up X2. Adult w/ patient. 18:16 child monitor on. Pulse ox on. NIBP on. aa5 18:23 Jose Alejandro Alvarado PA is PHCP. [facility] 18:23 Jas Landon MD is Attending Physician. [facility] 18:30 Initial lab(s) drawn, by nd, sent to lab. Inserted saline lock: 20 gauge in right aa5 antecubital area, using aseptic technique. Blood collected. 18:32 Colleen Khan, RUFINO is Primary Nurse. aa5 19:03 Report given to RUFINO Black. aa5 19:36 Soft Tissue Neck W/Contr CT In Process Unspecified. EDMS 20:05 No provider procedures requiring assistance completed. lp1 21:07 Suki Marie MD is Referral Physician. [facility] 21:30 IV discontinued, No redness/swelling at site. Pressure dressing applied. lp1 Administered Medications: 18:33 Drug: Decadron - Dexamethasone 10 mg Route: IVP; Site: right antecubital; aa5 18:45 Follow up: Response: No adverse reaction aa Outcome: 21:10 Discharge ordered by . [facility] 21:31 Discharged to home via wheelchair, with family. lp1 21:31 Condition: good 21:31 Discharge instructions given to patient, family, Instructed on discharge instructions, follow up and referral plans. medication usage, Demonstrated understanding of instructions, follow-up care, medications, Prescriptions given X 1. 21:32 Patient left the ED. lp1 Signatures: Dispatcher [employer] EDMS Laura Guillory RN RN aj Mickail, Joel, PA PA [facility] Colleen Khan, RUFINO JOY aa Sofia Martinez RN RN lp1
--- NOTE | 2018-11-28 21:11 | EDPHYS ---
Physician Documentation [facility] Name: Oliver Gillette Age: 67 yrs Sex: Male : 1950 Arrival Date: 11/28/2018 Time: 18:14 Bed 14 Private MD: ED Physician Jas Landon HPI: 11/28 18:27 This 67 yrs old Male presents to ER via Wheelchair with complaints of jmm Breathing Difficulty. 18:27 The patient has shortness of breath at rest, with light activity. Onset: The jmm symptoms/episode began/occurred gradually, 3 week(s) ago. Duration: The symptoms are continuous, and are steadily getting worse. Associated signs and symptoms: Pertinent negatives: chest pain, fever. This is a 67 year old male with a history of throat cancer that presents to the ED with complaints of of shortness of breath worsening over the past 3 weeks. Patient had a similar episode with relief by oral steroids. . Historical: - Allergies: 18:16 Morphine; aj 18:16 MS Contin; aj - PMHx: 18:16 Cancer Throat; aj - Immunization history:: Adult Immunizations up to date. - Social history:: Smoking status: Patient/guardian denies using tobacco. - Ebola Screening: : Patient negative for fever greater than or equal to 101.5 degrees Fahrenheit, and additional compatible Ebola Virus Disease symptoms Patient denies exposure to infectious person Patient denies travel to an Ebola-affected area in the 21 days before illness onset No symptoms or risks identified at this time. ROS: 18:27 Constitutional: Negative for fever, chills, and weight loss, Eyes: Negative for injury, jmm pain, redness, and discharge, ENT: Negative for injury, pain, and discharge, Neck: Negative for injury, pain, and swelling, Cardiovascular: Negative for chest pain, palpitations, and edema. 18:27 Abdomen/GI: Negative for abdominal pain, nausea, vomiting, diarrhea, and constipation, Back: Negative for injury and pain, : Negative for injury, bleeding, discharge, and swelling, MS/Extremity: Negative for injury and deformity, Skin: Negative for injury, rash, and discoloration, Neuro: Negative for headache, weakness, numbness, tingling, and seizure. 18:27 Respiratory: Positive for shortness of breath. 18:27 All other systems are negative. Exam: 18:27 Head/Face: atraumatic. [facility] 18:27 Chest/axilla: Normal chest wall appearance and motion. Cardiovascular: Regular rate and rhythm. No edema appreciated 18:27 Back: Normal ROM Skin: General appearance color normal MS/ Extremity: Moves all extremities, no obvious deformities appreciated, no edema noted to the lower extremities Neuro: Awake and alert, normal gait Psych: Behavior is normal, Mood is normal, Patient is cooperative and pleasant 18:27 Constitutional: The patient appears in no acute distress, alert, awake. 18:27 ENT: Posterior pharynx: is normal, no edema appreciated. 18:27 Neck: ROM/movement: is normal, is supple. 18:27 Respiratory: mild respiratory distress is noted, Breath sounds: stridor, stridor noted. Vital Signs: 18:16 BP 181 / 80; Pulse 97; Resp 26; Temp 98.4; Pulse Ox 96% on R/A; Weight 100.24 kg; aj Height 5 ft. 8 in. (172.72 cm); 18:30 BP 140 / 75; Pulse 79; Resp 22 S; Pulse Ox 98% on R/A; aa5 19:15 BP 148 / 73; Pulse 83; Resp 12; Pulse Ox 97% on 2 lpm NC; lp1 20:00 BP 139 / 62; Pulse 87; Resp 12; Pulse Ox 100% on 2 lpm NC; lp1 20:30 BP 138 / 63; Pulse 86; Resp 12; Pulse Ox 97% on R/A; lp1 21:31 BP 148 / 68; Pulse 88; Resp 12; Pulse Ox 96% on R/A; Pain 0/10; lp1 18:16 Body Mass Index 33.60 (100.24 kg, 172.72 cm) MDM: 18:27 Patient medically screened. [facility] 21:04 Data reviewed: vital signs, nurses notes. Counseling: I had a detailed discussion with priscila the patient and/or guardian regarding: the historical points, exam findings, and any diagnostic results supporting the discharge/admit diagnosis, lab results, radiology results, the need for outpatient follow up, to return to the emergency department if symptoms worsen or persist or if there are any questions or concerns that arise at home. ED course: Patient states that he feels much better in the ED. Normal VS in the ED. I discussed the patient with Dr. Marie whom will follow up with the patient in clinic. Patient advised to follow up in clinic. Patient understood and agrees with the plan of care. Patient was otherwise given strict return precautions. . 11/28 18:28 Order name: CBC with Diff; Complete Time: 19:12 [facility] 11/28 18:28 Order name: CMP; Complete Time: 19:12 [facility] 11/28 18:28 Order name: Troponin (emerg Dept Use Only); Complete Time: 19:12 [facility] 11/28 18:28 Order name: PT-INR; Complete Time: 19:12 [facility] 11/28 18:28 Order name: Soft Tissue Neck W/Contr CT; Complete Time: 19:49 [facility] 11/28 18:28 Order name: Saline Lock; Complete Time: 18:31 jm Administered Medications: 18:33 Drug: Decadron - Dexamethasone 10 mg Route: IVP; Site: right antecubital; aa5 18:45 Follow up: Response: No adverse reaction aa5 Disposition: 11/29 06:59 Co-signature as Attending Physician, Jas Landon MD I agree with the assessment and kdr plan of care. Disposition: 11/28/18 21:10 Discharged to Home. Impression: Other diseases of vocal cords. - Condition is Stable. - Discharge Instructions: Vocal Cord Paralysis. - Prescriptions for dexamethasone 4 mg Oral tablet - take 2 tablet by ORAL route once daily; 10 tablet. - Medication Reconciliation Form, Thank You Letter, Antibiotic Education, Prescription Opioid Use form. - Follow up: Suki Marie MD; When: 2 - 3 days; Reason: Recheck today's complaints, Continuance of care, Re-evaluation by your physician. Signatures: Dispatcher [employer] EDLaura Garzon, Jas Young RN, MD MD kdr Mickail, Joel, PA PA jmm Calderon, Audri RN RN aa5 Sofia Martinez RN RN lp1 Corrections: (The following items were deleted from the chart) 11/28 21:32 21:10 11/28/2018 21:10 Discharged to Home. Impression: Other diseases of vocal cords. lp1 Condition is Stable. Forms are Medication Reconciliation Form, Thank You Letter, Antibiotic Education, Prescription Opioid Use. Follow up: Suki Marie; When: 2 - 3 days; Reason: Recheck today's complaints, Continuance of care, Re-evaluation by your physician. priscila
== END 2018-11-28 21:32 | disposition home or self-care (01) ==
LOC: ER 18:07
DX: J38.3 Other diseases of vocal cords (principal); Z88.6 Allergy status to analgesic agent; Z85.819 Personal history of malignant neoplasm of unspecified site of lip, oral cavity, and pharynx
CPT/HCPCS: 85025; 36415; 85610; 84484; 80053; 70491; 96374; 99284; Q9967; J1100

== ENCOUNTER 2021-04-29 06:15 | Day surgery (SDC) | payer OTHER ==
[2021-04-28 12:58] LABS: Absolute Lymphocytes (CBC) 0.7 K/uL (0.7-4.9); Basophils % 0.9 % (0-1.3); Hematocrit 36.5 % (39.6-49.0); Lymphocytes % 12.9 % (15.3-44.8); MPV 7.5 fL (7.6-11.3); RBC Red Blood Cell Count 3.89 M/uL (4.33-5.43)
[2021-04-29] MEDS ORDERED: CEFAZOLIN/NS 1gm 1 GM/50 ML BAG ONE (07:18)
[2021-04-29] MEDS ORDERED: Ringers Lactate 1,000 ML IV ONE (07:18)
[2021-04-29] MEDS ORDERED: FENTANYL CITR 100 MCG/2 ML ONE (07:34)
[2021-04-29] MEDS ORDERED: LIDOCAINE 1% MPF 5 ML VIAL ONE (07:34)
[2021-04-29] MEDS ORDERED: propofoL 200 MG/20 ML VIAL IV ONE ×4 (07:34→08:52)
[2021-04-29] MEDS ORDERED: NS 0.9% VIAL 20 ML ONE (07:38)
[2021-04-29] MEDS ORDERED: HEPARIN 5000 UNIT/ML 1 ML VIAL ONE (07:39)
[2021-04-29] MEDS: LIDOCAINE 1% MPF 30 ML VIAL ONE ×2 (08:02→08:08)
[2021-04-29] MEDS ORDERED: KETOROLAC 30 MG/ML INJ ONE (08:28)
[2021-04-29] MEDS ORDERED: ONDANSETRON 4 MG/2 ML VIAL ONE (08:28)
[2021-04-29] MEDS ORDERED: Phenylephrine HCl 10 MG/ML 1 ML VIAL ONE (08:54)
[2021-04-29] MEDS ORDERED: NS 0.9% VIAL 10 ML ONE (08:54)
[2021-04-29 10:12] VITALS: BP 138/57; TEMP 97.5; O2SAT 98
--- NOTE | 2021-04-29 10:27 | RAD REPORT ---
EXAM DESCRIPTION: RAD - Chest Single View - 04/29/2021 9:54 am CLINICAL HISTORY: port a cath attempt COMPARISON: Chest Pa And Lat (2 Views) dated 11/04/2018; Chest Pa And Lat (2 Views) dated 10/25/2017 FINDINGS: Lines: Tracheostomy. Left subclavian approach pacemaker. Lungs: No edema or consolidation. Pleural: No significant pleural effusions or pneumothorax. Cardiac: The heart size is within normal limits. Bones: No acute fractures. Other: IMPRESSION: No acute cardiopulmonary disease. Specifically, no pneumothorax identified.
--- NOTE | 2021-04-29 20:32 | OP ---
Date of Procedure: 04/29/2021 Surgeon: Justin Segovia MD Preoperative Diagnosis: Throat cancer. Postoperative Diagnosis: Throat cancer. Procedure: Attempted right side Port-A-Cath placement and utilization of ultrasound machine. Intraoperative Consultation: By Dr. Escobar. Estimated Blood Loss: None. Specimen: None. Findings: Unable to access the superior vena cava. I was able to get into the SVC but the guidewire would not pass. The patient had radiation therefore I feel fibrosis may be contributing to his diff iculties that we encountered and Dr. Escobar attempted as well and both of us were unsuccessful. Finding: As above. Anesthesia: General. Complications: None. Disposition: The patient tolerated the procedure in stable condition and taken to Recovery in good g eneral condition. Procedure In Detail: The patient was brought to the OR and placed in supine position. General anest hesia began. The patient was prepped and draped in the sterile fashion. Then, ultrasound was utiliz ed to try to identify the subclavian vein which was done which was small and narrowed and 80 gauge ne edle was used to access the vein; however we were unable to pass a guidewire safely, multiple attempt s were tried and Dr. Escobar was consulted intraoperatively. He used supraclavicular approach and was u nable to access the venous system. Multiple attempts were done. As the left side could not be used because of the pacemaker at this point, I felt the safest thing to do was to abort the procedure and refer the patient to an interventional radiologist in [place] and I have placed a call and awaiting h is response. I will also discuss the findings of the operation with . The patient was awakened and taken to Recovery in good general condition. Chest x-ray has been ordered. Discharge Note: The patient will go to Day Surgery and home when stable. Disposition: Home. Condition: Stable. Discharge Instructions: Resume home medications and diet. Activity as tolerated. No heavy lifting. The patient does not have a dressing. I will call the patient and refer him to the appropriate fac ility in [place]. Again plan of care was discussed in detail with /MODL Voice ID: [id number] Report ID: [id number]
== END 2021-04-29 10:19 | disposition home or self-care (01) ==
LOC: OR 06:15
PROVIDERS: ATTEND Surgery
PROC: 02HV33Z Insertion of Infusion Device into Superior Vena Cava, Percutaneous Approach (ICD-10-PCS; principal; 2021-04-29 07:30)
DX: C14.0 Malignant neoplasm of pharynx, unspecified (principal); Z20.822 Contact with and (suspected) exposure to COVID-19
CPT/HCPCS: 36561; 85025; 36415; 71045; U0003; J2704 ×4; J2370; J1644 ×2; J3010; J0690; J7120; J2405